=== PATIENT | female | born 1935 | race Caucasian/White ===

== ENCOUNTER 2017-12-17 20:33 | Emergency (ER) | payer MEDICARE, OTHER ==
[2017-12-17] MEDS ORDERED: Sodium Chloride 0.9% 10 ML Syringe FLUSH PRN (20:39)
[2017-12-17] MEDS ORDERED: Meperidine PF 100 MG/ML Syringe IVPUSH ONE (20:52)
[2017-12-17] MEDS ORDERED: Ondansetron 4 MG/2 ML SDV IVPUSH ONE (20:55)
--- NOTE | 2017-12-17 20:59 | EDM.PDOC ---
ED HPI GENERAL MEDICAL PROBLEM - General Chief Complaint: General Stated Complaint: liz,feels unwell Time Seen by Provider: 12/17/17 20:39 Source of Information: Reports: Patient, RN, RN Notes Reviewed History Limitations: Reports: No Limitations - History of Present Illness INITIAL COMMENTS - FREE TEXT/NARRATIVE: Patient presents to the ED at [facility] complaining of uncontrollable shaking, severe nausea, and "just not feeling well." Symptoms started about 15- 20 minutes prior to presentation. Patient denies any focal neurological deficits. No headache. No weakness. No visual changes. Patient denies any chest pain. Patient does not feel short of breath. She does not feel anxious. She is not sure why she can not control her hands from shaking. She feels very nauseated. She has not vomited but states "I almost did when I got up from the couch." No diarrhea. No abdominal pain. Is having normal BM's. No changes with any medications. She did eat supper this evening and states it did stay down. She is not sure if maybe she ate undercooked foods. No fevers. No chills. No issues with urination. She is taking her prescription medications as directed without any side effects. Patient denies any pain. Onset: Today, Sudden Onset Date: 12/17/17 Onset Time: 20:00 - Related Data Allergies Allergy/AdvReac Type Severity Reaction Status Date / Time brimonidine [From Combigan] Allergy Itching Verified 12/17/17 21:02 timolol Allergy Itching Verified 12/17/17 21:02 Home Meds: Home Meds Bimatoprost [LUMIGAN 0.01% Ophth Soln] 1 drop EYEBOTH BEDTIME 12/17/17 [History] Calcium Citrate/Vitamin D2 [Calcium with Vit D Tablet] 1 each PO BID 12/17/17 [ History] Hydrochlorothiazide [Hydrochlorothiazide] 1 tab PO DAILY 12/17/17 [History] Lisinopril [Lisinopril] 1 tab PO DAILY 12/17/17 [History] Multivitamin with Minerals [Multiple Vitamin] 1 each PO BID 12/17/17 [History] Niacin (Inositol Niacinate) [Niacin Flush Free 500 mg Cap] 500 mg PO DAILY 12/17 [History] [place]-3/DHA/Epa/Fish Oil [[place] 3 500 Softgel] 1 each PO BID 12/17/17 [History] Vit #49/Iron Fum/FA [Mini Tablet] 1 each PO DAILY 12/17/17 [ History] Thyroid,Pork [Nature-Throid] 1 tab PO DAILY 12/17/17 [History] Vitamin E 100 unit PO DAILY 12/17/17 [History] diphenhydrAMINE [Benadryl] 25 mg PO TID 12/17/17 [History] ED ROS GENERAL - Review of Systems Review Of Systems: See Below Constitutional: Denies: Fever, Chills, Weakness Respiratory: Denies: Shortness of Breath, Cough Cardiovascular: Denies: Chest Pain, Palpitations GI/Abdominal: Reports: Nausea. Denies: Abdominal Pain, Black Stool, Bloody Stool, Diarrhea, Vomiting Skin: Reports: No Symptoms Neurological: Reports: Dizziness, Other (feels shaky with her upper extremities) . Denies: Headache ED EXAM, GENERAL - Physical Exam Exam: See Below Exam Limited By: No Limitations General Appearance: Alert, No Apparent Distress Eye Exam: Bilateral Eye: Normal Inspection, PERRL Ears: Normal External Exam, Normal Canal, Normal TMs Ear Exam: Bilateral Ear: TM normal Nose: Normal Inspection Neck: Normal Inspection, Supple Respiratory/Chest: No Respiratory Distress, Lungs Clear, Normal Breath Sounds Cardiovascular: Normal Peripheral Pulses, Regular Rate, Rhythm Peripheral Pulses: 2+: Radial (L), Radial (R) GI/Abdominal: Soft, Non-Tender, Abnormal Bowel Sounds (Hypoactive) Extremities: Normal Inspection Neurological: Alert, Oriented, Other (shaking BUE as if she is cold) Skin Exam: Warm, Dry, Intact, Normal Color, No Rash EKG INTERPRETATION EKG Date: 12/17/17 Time: 21:10 Rhythm: NSR Rate (Beats/Min): 61 Hall: Normal P-Wave: Present QRS: Normal ST-T: Depressed QT: Normal GA/PQ Interval: 0.20 Comparison: NA - No Prior EKG EKG Interpretation Comments: 1. Sinus Rhythm 2. Moderate ST depression Course - Vital Signs Last Recorded V/S: Last Vital Signs Temp 35.8 C 12/17/17 20:39 Pulse 77 12/17/17 20:39 Resp 20 12/17/17 20:39 BP 160/94 H 12/17/17 20:39 Pulse Ox 100 12/17/17 20:39 - Orders/Labs/Meds Orders: Active Orders 24 hr Category Date Time Status EKG 12 Lead [EKG Documentation Completion] [RC] STAT Care 12/17/17 20:41 Active Chest 2V [CR] Stat Exams 12/17/17 20:39 Taken CULTURE BLOOD [BC] Stat Lab 12/17/17 20:58 Received CULTURE BLOOD [BC] Stat Lab 12/17/17 21:03 Received Potassium Chloride [Klor-Con M20] Med 12/17/17 21:41 Once 40 meq PO ONETIME ONE Sodium Chloride 0.9% [Saline Flush] Med 12/17/17 20:39 Active 10 ml FLUSH ASDIRECTED PRN Blood Culture x2 Reflex Set [OM.PC] Stat Oth 12/17/17 20:41 Ordered Peripheral IV Insertion Adult [OM.PC] Routine Oth 12/17/17 20:39 Ordered Medication Orders Sodium Chloride (Saline Flush) 10 ml FLUSH ASDIRECTED PRN PRN Reason: Keep Vein Open Labs: Laboratory Tests 12/17/17 12/17/17 12/17/17 Range/Units 20:58 20:58 20:58 WBC 4.2 (4.0-10.0) x10^3/uL RBC 3.99 L (4.00-5.50) x10^6/uL Hgb 12.7 (12.0-16.0) g/dL Hct 36.8 (33.0-47.0) % MCV 92.2 (78.0-93.0) fL MCH 31.8 (26.0-32.0) pg MCHC 34.5 (32.0-36.0) g/dL RDW Coeff of Josh 13.0 (10.0-15.0) % Plt Count 243 (130-400) x10^3/uL Neut % (Auto) 54.2 (50.0-80.0) % Lymph % (Auto) 31.2 (25.0-50.0) % [place] % (Auto) 10.6 (2.0-11.0) % Eos % (Auto) 3.3 (0.0-4.0) % Baso % (Auto) 0.7 (0.2-1.2) % Sodium 136 (136-145) mmol/L Potassium 3.3 L (3.5-5.1) mmol/L Chloride 100 (98-107) mmol/L Carbon Dioxide 27 (21-32) mmol/L BUN 9 (7-18) mg/dL Creatinine 0.8 (0.55-1.02) mg/dL Est Cr Clr Drug Dosing TNP Estimated GFR (MDRD) > 60 Glucose 101 (74-106) mg/dL Lactic Acid 1.0 (0.4-2.0) mmol/L Calcium 9.2 (8.5-10.1) mg/dL Phosphorus 4.0 (2.6-4.7) mg/dL Magnesium 2.0 (1.8-2.4) mg/dL Creatine Kinase 63 (26-192) U/L Troponin I < 0.017 (<=0.056) ng/mL C-Reactive Protein < 0.2 (<=0.9) mg/dL Urine Color (YELLOW) Urine Appearance (CLEAR) Urine pH (5.0-8.0) Ur Specific [place] Urine Protein (NEGATIVE) mg/dL Urine Glucose (UA) (NEGATIVE) mg/dL Urine Ketones (NEGATIVE) mg/dL Urine Occult Blood (NEGATIVE) Urine Nitrite (NEGATIVE) Urine Bilirubin (NEGATIVE) Urine Urobilinogen (0.2) EU/dL Ur Leukocyte Esterase (NEGATIVE) Urine RBC (NOT SEEN) /HPF Urine WBC (NOT SEEN) /HPF Ur Squamous Epith Cells (NEGATIVE) /HPF Urine Bacteria (NEGATIVE) /HPF Urine Mucus (NEGATIVE) /LPF 12/17/17 Range/Units 21:00 WBC (4.0-10.0) x10^3/uL RBC (4.00-5.50) x10^6/uL Hgb (12.0-16.0) g/dL Hct (33.0-47.0) % MCV (78.0-93.0) fL MCH (26.0-32.0) pg MCHC (32.0-36.0) g/dL RDW Coeff of Josh (10.0-15.0) % Plt Count (130-400) x10^3/uL Neut % (Auto) (50.0-80.0) % Lymph % (Auto) (25.0-50.0) % [place] % (Auto) (2.0-11.0) % Eos % (Auto) (0.0-4.0) % Baso % (Auto) (0.2-1.2) % Sodium (136-145) mmol/L Potassium (3.5-5.1) mmol/L Chloride (98-107) mmol/L Carbon Dioxide (21-32) mmol/L BUN (7-18) mg/dL Creatinine (0.55-1.02) mg/dL Est Cr Clr Drug Dosing Estimated GFR (MDRD) Glucose (74-106) mg/dL Lactic Acid (0.4-2.0) mmol/L Calcium (8.5-10.1) mg/dL Phosphorus (2.6-4.7) mg/dL Magnesium (1.8-2.4) mg/dL Creatine Kinase (26-192) U/L Troponin I (<=0.056) ng/mL C-Reactive Protein (<=0.9) mg/dL Urine Color Yellow (YELLOW) Urine Appearance Slightly cloudy H (CLEAR) Urine pH 7.0 (5.0-8.0) Ur Specific [place] 1.010 Urine Protein Negative (NEGATIVE) mg/dL Urine Glucose (UA) Negative (NEGATIVE) mg/dL Urine Ketones Negative (NEGATIVE) mg/dL Urine Occult Blood Small H (NEGATIVE) Urine Nitrite Negative (NEGATIVE) Urine Bilirubin Negative (NEGATIVE) Urine Urobilinogen 0.2 (0.2) EU/dL Ur Leukocyte Esterase Negative (NEGATIVE) Urine RBC 5-10 H (NOT SEEN) /HPF Urine WBC 0-5 (NOT SEEN) /HPF Ur Squamous Epith Cells Rare (NEGATIVE) /HPF Urine Bacteria Rare (NEGATIVE) /HPF Urine Mucus Rare H (NEGATIVE) /LPF Meds: Medications Generic Name Dose Route Start Last Admin Trade Name Freq PRN Reason Stop Dose Admin Sodium Chloride 10 ml 12/17/17 20:39 Saline Flush FLUSH ASDIRECTED PRN Keep Vein Open Discontinued Medications Generic Name Dose Route Start Last Admin Trade Name Freq PRN Reason Stop Dose Admin Meperidine HCl 12.5 mg 12/17/17 20:52 12/17/17 21:06 Demerol IVPUSH 12/17/17 20:53 12.5 mg ONETIME ONE Administration Ondansetron HCl 4 mg 12/17/17 20:55 12/17/17 21:06 Zofran IVPUSH 12/17/17 20:56 4 mg ONETIME ONE Administration - Radiology Interpretation Free Text/Narrative:: CXR: No consolidation - see scanned report in EMR - Re-Assessments/Exams Free Text/Narrative Re-Assessment/Exam: 12/17/17 21:22 Patient states her shaking spells have resolved after getting the Demerol. Her nausea has resolved as well after the Zofran. Patient is resting comfortably. Departure - Departure Time of Disposition: 21:45 Disposition: Home, Self-Care 01 Condition: Good Clinical Impression: Nausea, Shaking - Discharge Information Instructions: Nausea, Adult, Tremor Referrals: Evangelina Dunaway MD [Primary Care Provider] - Forms: ED Department Discharge Additional Instructions: 1. Stay well hydrated and rest 2. Continue with home medications the same, no changes at this time 3. If symptoms persist, recommend seeing Dr. Dunaway for a recheck as needed 4. Call us with any questions/concerns - Problem List Review Problem List Initiated/Reviewed/Updated: Yes - My Orders Last 24 Hours: My Active Orders 12/17/17 20:39 Chest 2V [CR] Stat Sodium Chloride 0.9% [Saline Flush] 10 ml FLUSH ASDIRECTED PRN Peripheral IV Insertion Adult [OM.PC] Routine 12/17/17 20:41 EKG 12 Lead [EKG Documentation Completion] [RC] STAT Blood Culture x2 Reflex Set [OM.PC] Stat 12/17/17 20:58 CULTURE BLOOD [BC] Stat 12/17/17 21:03 CULTURE BLOOD [BC] Stat 12/17/17 21:41 Potassium Chloride [Klor-Con M20] 40 meq PO ONETIME ONE - Assessment/Plan Last 24 Hours: My Active Orders 12/17/17 20:39 Chest 2V [CR] Stat Sodium Chloride 0.9% [Saline Flush] 10 ml FLUSH ASDIRECTED PRN Peripheral IV Insertion Adult [OM.PC] Routine 12/17/17 20:41 EKG 12 Lead [EKG Documentation Completion] [RC] STAT Blood Culture x2 Reflex Set [OM.PC] Stat 12/17/17 20:58 CULTURE BLOOD [BC] Stat 12/17/17 21:03 CULTURE BLOOD [BC] Stat 12/17/17 21:41 Potassium Chloride [Klor-Con M20] 40 meq PO ONETIME ONE Assessment:: Nausea Non-specific tremor of upper body Plan: Labs, xray, and EKG reviewed with patient. No definitive etiology found for her presenting symptoms. Patient is feeling much better since arrival. It is possible she has a viral etiology or a gastroenteritis. Discussed with the patient to watch her symptoms over the next few days. She needs to stay well hydrated. No changes with any home medications. Return to PCP if symptoms persist.
[2017-12-17 21:34] LABS: CHLORIDE,CL 100 mmol/L (98-107); SODIUM,NA 136 mmol/L (136-145)
[2017-12-17] MEDS ORDERED: Potassium Chloride 20 MEQ Tab.ER PO ONE (21:41)
== END 2017-12-17 22:00 | disposition home or self-care (01) ==
LOC: VM.ED 20:33
DX: R11.0 Nausea (principal); R25.1 Tremor, unspecified; Z79.899 Other long term (current) drug therapy; Z88.8 Allergy status to other drugs, medicaments and biological substances
CPT/HCPCS: 36415; 71046; 80048; 81001; 82550; 83605; 83735; 84100; 84484; 85025; 86140; 87040; 93005; 93010; 96374; 96375; 99283; 99284; A9270; J2175; J2405

== ENCOUNTER 2017-12-18 08:23 | Observation (INO) | payer MEDICARE, OTHER ==
[2017-12-18 09:28] LABS: CHLORIDE,CL 102 mmol/L (98-107); SODIUM,NA 136 mmol/L (136-145)
[2017-12-18] MEDS ORDERED: LORazepam 0.5 MG Tab PO PRN (10:35)
[2017-12-18] MEDS ORDERED: Aspirin 81 MG Tab.Chew PO ONE (10:35)
[2017-12-18] MEDS ORDERED: Enoxaparin 40 MG/0.4 ML Syringe SUBCUT SCH (12:00)
[2017-12-18] MEDS: Hydrochlorothiazide 12.5 MG Cap PO SCH (14:03)
[2017-12-18] MEDS: Lisinopril 20 MG Tab PO SCH (14:03)
--- NOTE | 2017-12-18 15:54 | EDM.PDOC ---
ED HPI GENERAL MEDICAL PROBLEM - General Chief Complaint: Gastrointestinal Problem Stated Complaint: chest heaviness, nausea Time Seen by Provider: 12/18/17 08:23 Source of Information: Reports: Patient History Limitations: Reports: No Limitations - History of Present Illness INITIAL COMMENTS - FREE TEXT/NARRATIVE: She presents to the ER with complaints of chest heaviness, nausea, and lightheadedness. States that she generally "doesn't feel well". Was in ER last night with similar symptoms; states that she went to stay with family for the night, went to sleep, and had no problems. She states that once she woke up, the symptoms redeveloped. Denies shortness of breath, arm, jaw, neck, or back pain. Onset: Gradual Duration: Constant Location: Reports: Chest Quality: Reports: Pressure Severity: Moderate - Related Data Allergies Allergy/AdvReac Type Severity Reaction Status Date / Time brimonidine [From Combigan] Allergy Itching Verified 12/18/17 08:33 timolol Allergy Itching Verified 12/18/17 08:33 Home Meds: Home Meds Bimatoprost [LUMIGAN 0.01% Ophth Soln] 1 drop EYEBOTH BEDTIME 12/17/17 [History] Calcium Citrate/Vitamin D2 [Calcium with Vit D Tablet] 1 each PO BID 12/17/17 [ History] Hydrochlorothiazide [Hydrochlorothiazide] 12.5 mg PO QAM 12/17/17 [History] Lisinopril [Lisinopril] 20 mg PO DAILY 12/17/17 [History] Multivitamin with Minerals [Multiple Vitamin] 1 each PO BID 12/17/17 [History] Niacin (Inositol Niacinate) [Niacin Flush Free 500 mg Cap] 500 mg PO DAILY 12/17 [History] [place]-3/DHA/Epa/Fish Oil [[place] 3 500 Softgel] 1 each PO BID 12/17/17 [History] Vit #49/Iron Fum/FA [Mini Tablet] 1 each PO DAILY 12/17/17 [ History] Thyroid,Pork [Nature-Throid] 65 mg PO DAILY 12/17/17 [History] Vitamin E 100 unit PO DAILY 12/17/17 [History] diphenhydrAMINE [Benadryl] 25 mg PO TID 12/17/17 [History] Past Medical History HEENT History: Reports: Glaucoma Cardiovascular History: Reports: High Cholesterol, Hypertension Gastrointestinal History: Reports: PUD Endocrine/Metabolic History: Reports: Hypothyroidism Social & Family History - Tobacco Use Smoking Status *Q: Never Smoker Second Hand Smoke Exposure: No - Caffeine Use Caffeine Use: Reports: Coffee - Alcohol Use Days Per Week of Alcohol Use: 7 Number of Drinks Per Day: 1 Total Drinks Per Week: 7 - Recreational Drug Use Recreational Drug Use: No ED ROS GENERAL - Review of Systems Review Of Systems: See Below Constitutional: Reports: No Symptoms HEENT: Reports: No Symptoms Respiratory: Reports: No Symptoms Cardiovascular: Reports: Chest Pain. Denies: Dyspnea on Exertion, Palpitations , PND Endocrine: Reports: No Symptoms GI/Abdominal: Reports: Nausea : Reports: No Symptoms Musculoskeletal: Reports: No Symptoms Skin: Reports: No Symptoms Neurological: Reports: No Symptoms Psychiatric: Reports: No Symptoms Hematologic/Lymphatic: Reports: No Symptoms Immunologic: Reports: No Symptoms ED EXAM, GENERAL - Physical Exam Exam: See Below Exam Limited By: No Limitations General Appearance: Alert, WD/WN, No Apparent Distress Ears: Normal External Exam, Normal Canal, Hearing Grossly Normal, Normal TMs Nose: Normal Inspection, Normal Mucosa, No Blood Throat/Mouth: Normal Inspection, Normal Lips, Normal Teeth, Normal Gums, Normal Oropharynx, Normal Voice, No Airway Compromise Head: Atraumatic, Normocephalic Neck: Normal Inspection, Supple, Non-Tender, Full Range of Motion Respiratory/Chest: No Respiratory Distress, Lungs Clear, Normal Breath Sounds, No Accessory Muscle Use, Chest Non-Tender Cardiovascular: Normal Peripheral Pulses, Regular Rate, Rhythm, No Edema, No Gallop, No JVD, No Murmur, No Rub GI/Abdominal: Normal Bowel Sounds, Soft, Non-Tender, No Organomegaly, No Distention, No Abnormal Bruit, No Mass (Female) Exam: Deferred Rectal (Female) Exam: Deferred Back Exam: Normal Inspection, Full Range of Motion, NT Extremities: Normal Inspection, Normal Range of Motion, Non-Tender, Normal Capillary Refill, No Pedal Edema Neurological: Alert, Oriented, CN II-XII Intact, Normal Cognition, Normal Gait, Normal Reflexes, No Motor/Sensory Deficits Psychiatric: Normal Affect, Normal Mood Skin Exam: Warm, Dry, Intact, Normal Color, No Rash Lymphatic: No Adenopathy EKG INTERPRETATION EKG Date: 12/18/17 Rhythm: NSR [place]: Normal P-Wave: Present QRS: Normal ST-T: Normal QT: Normal Course - Vital Signs Last Recorded V/S: Last Vital Signs Temp 37.2 C 12/18/17 14:00 Pulse 60 12/18/17 14:00 Resp 16 12/18/17 14:00 BP 147/73 H 12/18/17 14:00 Pulse Ox 97 12/18/17 14:00 - Orders/Labs/Meds Orders: Medication Orders Calcium Citrate (Calcium Citrate + D) 1 tab PO BID [facility] Diphenhydramine HCl (Benadryl) 25 mg PO TID [facility] Enoxaparin Sodium (Lovenox) 40 mg SUBCUT DAILY@1200 [facility] Last Admin: 12/18/17 11:13 Dose: 40 mg Fish Oil (Fish Oil) 1 gm PO BID [facility] Hydrochlorothiazide (Hydrochlorothiazide) 12.5 mg PO DAILY [facility] Last Admin: 12/18/17 14:03 Dose: 12.5 mg Lisinopril (Prinivil) 20 mg PO DAILY [facility] Last Admin: 12/18/17 14:03 Dose: 20 mg Lorazepam (Ativan) 0.5 mg PO Q6H PRN PRN Reason: Anxiety Last Admin: 12/18/17 16:21 Dose: 0.5 mg Multivitamins/Minerals (Thera M Plus) 1 tab PO BID [facility] Niacin (Niaspan) 500 mg PO DAILY [facility] Bimatoprost [Lumigan 0.01% Ophth Soln] ( Own Supply) 1 drop EYEBOTH BEDTIME [facility] Vit #49/Iron Fum/Fa [Mini Tablet] ( Own Supply) 1 each PO DAILY [facility] Thyroid,Pork [Nature -Throid] 65 Mg (Own Supply) 65 mg PO DAILY [facility] Vitamin E [Vitamin E ] 100 Unit (Own Supply) 0 unit PO DAILY [facility] Labs: Laboratory Tests 12/18/17 12/18/17 12/18/17 Range/Units 08:47 08:47 08:47 WBC 3.2 L (4.0-10.0) x10^3/uL RBC 3.83 L (4.00-5.50) x10^6/uL Hgb 12.3 (12.0-16.0) g/dL Hct 35.8 (33.0-47.0) % MCV 93.5 H (78.0-93.0) fL MCH 32.1 H (26.0-32.0) pg MCHC 34.4 (32.0-36.0) g/dL RDW Coeff of Josh 13.1 (10.0-15.0) % Plt Count 228 (130-400) x10^3/uL Neut % (Auto) 64.5 (50.0-80.0) % Lymph % (Auto) 21.9 L (25.0-50.0) % [place] % (Auto) 9.3 (2.0-11.0) % Eos % (Auto) 3.4 (0.0-4.0) % Baso % (Auto) 0.9 (0.2-1.2) % PT 10.1 (9.8-11.8) SEC INR 0.9 L (2.0-3.5) Sodium 136 (136-145) mmol/L Potassium 3.8 (3.5-5.1) mmol/L Chloride 102 (98-107) mmol/L Carbon Dioxide 26 (21-32) mmol/L BUN 9 (7-18) mg/dL Creatinine 0.9 (0.55-1.02) mg/dL Est Cr Clr Drug Dosing TNP Estimated GFR (MDRD) 60 Glucose 91 (74-106) mg/dL Calcium 9.3 (8.5-10.1) mg/dL Corrected Calcium 9.46 (8.5-10.1) mg/dL Total Bilirubin 1.3 H (0.2-1.0) mg/dL AST 19 (15-37) U/L ALT 20 (14-59) U/L Alkaline Phosphatase 81 (46-116) U/L Troponin I < 0.017 (<=0.056) ng/mL C-Reactive Protein < 0.2 (<=0.9) mg/dL Total Protein 6.7 (6.4-8.2) g/dL Albumin 3.8 (3.4-5.0) g/dL Globulin 2.9 Albumin/Globulin Ratio 1.31 TSH, Ultra Sensitive 2.265 (0.358-3.74) uIU/mL Meds: Medications Generic Name Dose Route Start Last Admin Trade Name Freq PRN Reason Stop Dose Admin Calcium Citrate 1 tab 03/08/18 20:00 Calcium Citrate + D PO BID [facility] Diphenhydramine HCl 25 mg 12/18/17 20:00 Benadryl PO TID [facility] Enoxaparin Sodium 40 mg 12/18/17 12:00 12/18/17 11:13 Lovenox SUBCUT 40 mg DAILY@1200 [facility] Administration Fish Oil 1 gm 12/18/17 20:00 Fish Oil PO BID [facility] Hydrochlorothiazide 12.5 mg 12/18/17 13:18 12/18/17 14:03 Hydrochlorothiazide PO 12.5 mg DAILY [facility] Administration Lisinopril 20 mg 12/18/17 13:30 12/18/17 14:03 Prinivil PO 20 mg DAILY [facility] Administration Lorazepam 0.5 mg 12/18/17 10:35 12/18/17 16:21 Ativan PO 0.5 mg Q6H PRN Administration Anxiety Multivitamins/Minerals 1 tab 12/18/17 20:00 Thera M Plus PO BID [facility] Niacin 500 mg 12/19/17 08:00 Niaspan PO DAILY [facility] Bimatoprost [Lumigan 1 drop 12/18/17 20:00 0.01% Ophth Soln] ( EYEBOTH Own Supply) BEDTIME [facility] Vit #49/ 1 each 12/19/17 08:00 Iron Fum/Fa [Mini PO Tablet] ( DAILY [facility] Own Supply) Thyroid,Pork [Nature 65 mg 12/19/17 08:00 -Throid] 65 Mg (Own PO Supply) DAILY [facility] Vitamin E [Vitamin E 0 unit 12/19/17 08:00 ] 100 Unit (Own PO Supply) DAILY [facility] Discontinued Medications Generic Name Dose Route Start Last Admin Trade Name Freq PRN Reason Stop Dose Admin Aspirin 324 mg 12/18/17 10:35 12/18/17 11:13 Aspirin PO 12/18/17 10:36 324 mg ONETIME ONE Administration Departure - Departure Time of Disposition: 10:25 Disposition: Refer to Observation Clinical Impression: Chest pressure - Discharge Information
[2017-12-18] MEDS: diphenhydrAMINE 25 MG Cap PO SCH (20:17)
[2017-12-18] MEDS: Fish Oil/Omega-3 Fatty Acids 1 Gm Cap PO SCH (20:18)
[2017-12-18] MEDS: Calcium Citrate/Vitamin D3 315 MG-250 Unit Tab PO SCH (20:18)
[2017-12-18] MEDS: Multivitamins with Iron/Calcium/Folic Acid/Minerals Tab PO SCH (20:18)
[2017-12-19] MEDS: Lisinopril 20 MG Tab PO SCH (07:26)
[2017-12-19] MEDS: Hydrochlorothiazide 12.5 MG Cap PO SCH (07:26)
[2017-12-19] MEDS: Fish Oil/Omega-3 Fatty Acids 1 Gm Cap PO SCH (07:26)
[2017-12-19] MEDS: Calcium Citrate/Vitamin D3 315 MG-250 Unit Tab PO SCH (07:26)
[2017-12-19] MEDS: diphenhydrAMINE 25 MG Cap PO SCH (07:26)
[2017-12-19] MEDS: Multivitamins with Iron/Calcium/Folic Acid/Minerals Tab PO SCH (07:26)
[2017-12-19] MEDS ORDERED: [UNRECOGNIZED DRUG - OTHER] PO SCH (08:00)
[2017-12-19] MEDS ORDERED: IRON FUM PO SCH (08:00)
[2017-12-19] MEDS ORDERED: THYROID PORK 65 MG PO SCH (08:00)
[2017-12-19] MEDS ORDERED: PRENATAL VIT PO SCH (08:00)
[2017-12-19] MEDS ORDERED: Niacin 500 MG Tab.ER PO SCH (08:00)
[2017-12-19] MEDS ORDERED: VITAMIN E 100 UNIT PO SCH (08:00)
== END 2017-12-19 09:35 | disposition home or self-care (01) ==
LOC: VM.ED 08:23 → VM.MS 10:15
PROVIDERS: ADMIT Physician Assistant; ATTEND Physician Assistant
DX: R07.89 Other chest pain (principal); H40.9 Unspecified glaucoma; I10 Essential (primary) hypertension; E78.00 Pure hypercholesterolemia, unspecified; E03.9 Hypothyroidism, unspecified; Z88.8 Allergy status to other drugs, medicaments and biological substances; Z79.899 Other long term (current) drug therapy
CPT/HCPCS: 36415; 71046; 80053; 84443; 84484; 85025; 85027; 85610; 86140; 93005; 96372; 99284; A9270; G0378; J1650

== ENCOUNTER 2017-12-29 21:54 | Emergency (ER) | payer MEDICARE, OTHER ==
--- NOTE | 2017-12-29 22:20 | EDM.PDOC ---
ED HPI GENERAL MEDICAL PROBLEM - General Chief Complaint: General Stated Complaint: dizziness, nausea Time Seen by Provider: 12/29/17 22:12 Source of Information: Reports: Patient, Old Records, RN, RN Notes Reviewed History Limitations: Reports: No Limitations - History of Present Illness INITIAL COMMENTS - FREE TEXT/NARRATIVE: Patient presents to the ED at [facility] complaining of unrelenting dizziness and significant nausea. Patient states she was seen in the clinic today for the same symptoms. She had a CT of her head today which was negative. Blood work was not overly remarkable outside of a low sodium. PCP recommended to patient to try Meclizine every 4 hours, increase salt intake. Was also ok for patient to take her Xanax as needed. Patient admits since leaving the clinic today she has not followed her D/C instructions that her PCP gave her. She states her symptoms have progressively gotten worse through the day. Onset: Unknown/Unsure - Related Data Allergies Allergy/AdvReac Type Severity Reaction Status Date / Time brimonidine [From Combigan] Allergy Itching Verified 12/29/17 22:12 timolol Allergy Itching Verified 12/29/17 22:12 Home Meds: Home Meds Bimatoprost [LUMIGAN 0.01% Ophth Soln] 1 drop EYEBOTH BEDTIME 12/17/17 [History] Calcium Citrate/Vitamin D2 [Calcium with Vit D Tablet] 1 each PO BID 12/17/17 [ History] Hydrochlorothiazide 12.5 mg PO QAM 12/17/17 [History] Lisinopril 20 mg PO DAILY 12/17/17 [History] Multivitamin with Minerals [Multiple Vitamin] 1 each PO BID 12/17/17 [History] Niacin (Inositol Niacinate) [Niacin Flush Free 500 mg Cap] 500 mg PO DAILY 12/17 [History] [place]-3/DHA/Epa/Fish Oil [[place] 3 500 Softgel] 1 each PO BID 12/17/17 [History] Vit #49/Iron Fum/FA [Mini Tablet] 1 each PO DAILY 12/17/17 [ History] Thyroid,Pork [Nature-Throid] 65 mg PO DAILY 12/17/17 [History] Vitamin E 100 unit PO DAILY 12/17/17 [History] diphenhydrAMINE [Benadryl] 25 mg PO TID 12/17/17 [History] LORazepam [Ativan] 0.5 mg PO Q6H PRN 5 Days #20 tablet 12/19/17 [Rx] Meclizine [Antivert] 1 tab PO Q4H PRN 12/29/17 [History] Past Medical History HEENT History: Reports: Glaucoma Cardiovascular History: Reports: High Cholesterol, Hypertension Gastrointestinal History: Reports: PUD Endocrine/Metabolic History: Reports: Hypothyroidism Social & Family History - Tobacco Use Smoking Status *Q: Never Smoker Second Hand Smoke Exposure: No - Caffeine Use Caffeine Use: Reports: Coffee - Alcohol Use Days Per Week of Alcohol Use: 7 Number of Drinks Per Day: 1 Total Drinks Per Week: 7 - Recreational Drug Use Recreational Drug Use: No ED ROS GENERAL - Review of Systems Review Of Systems: See Below Constitutional: Denies: Fever, Chills, Weakness HEENT: Reports: Vertigo. Denies: Vision Change Respiratory: Denies: Shortness of Breath, Cough Cardiovascular: Denies: Chest Pain, Palpitations Skin: Reports: No Symptoms Neurological: Reports: Dizziness. Denies: Headache, Numbness, Paresthesia, Syncope, Tingling ED EXAM, GENERAL - Physical Exam Exam: See Below Exam Limited By: No Limitations General Appearance: Alert, No Apparent Distress Eye Exam: Bilateral Eye: EOMI, Normal Inspection, PERRL Ears: Normal External Exam, Normal Canal, Normal TMs Ear Exam: Bilateral Ear: TM normal Head: Atraumatic, Normocephalic Neck: Supple Respiratory/Chest: No Respiratory Distress, Lungs Clear, Normal Breath Sounds Cardiovascular: Normal Peripheral Pulses, Regular Rate, Rhythm Peripheral Pulses: 2+: Radial (L), Radial (R) GI/Abdominal: Normal Bowel Sounds, Soft, Non-Tender Neurological: Alert, Oriented, Normal Cognition Skin Exam: Warm, Dry, Intact, Normal Color Course - Vital Signs Last Recorded V/S: Last Vital Signs Temp 36.4 C 12/29/17 21:55 Pulse 65 12/29/17 21:55 Resp 20 12/29/17 21:55 BP 168/78 H 12/29/17 21:55 Pulse Ox 100 12/29/17 21:55 - Orders/Labs/Meds Orders: Active Orders 24 hr Category Date Time Status Sodium Chloride 0.9% [Saline Flush] Med 12/29/17 22:21 Active 10 ml FLUSH ASDIRECTED PRN Peripheral IV Insertion Adult [OM.PC] Routine Oth 12/29/17 22:21 Ordered Medication Orders Sodium Chloride (Saline Flush) 10 ml FLUSH ASDIRECTED PRN PRN Reason: Keep Vein Open Meds: Medications Generic Name Dose Route Start Last Admin Trade Name Freq PRN Reason Stop Dose Admin Sodium Chloride 10 ml 12/29/17 22:21 Saline Flush FLUSH ASDIRECTED PRN Keep Vein Open Discontinued Medications Generic Name Dose Route Start Last Admin Trade Name Freq PRN Reason Stop Dose Admin Lactated Ringer's 1,000 mls @ 999 mls/hr 12/29/17 22:22 12/29/17 22:25 Ringers, Lactated IV 12/29/17 23:22 999 mls/hr ONETIME ONE Administration Meclizine HCl 25 mg 12/29/17 22:22 12/29/17 22:36 Antivert PO 12/29/17 22:23 25 mg ONETIME ONE Administration Ondansetron HCl 4 mg 12/29/17 22:22 12/29/17 22:33 Zofran IVPUSH 12/29/17 22:23 4 mg ONETIME ONE Administration Ondansetron HCl 1 packet 12/29/17 22:26 12/29/17 22:36 Take Home: Ondansetron Odt 4 Mg, 2 Tab Pack PO 12/29/17 22:27 1 packet ONETIME ONE Administration Departure - Departure Time of Disposition: 23:28 Disposition: Home, Self-Care 01 Condition: Good Clinical Impression: Dizziness BPPV (benign paroxysmal positional vertigo) Qualifiers: Laterality: unspecified laterality Qualified Code(s): H81.10 - Benign paroxysmal vertigo, unspecified ear - Discharge Information Instructions: Dizziness Referrals: Evangelina Dunaway MD [Primary Care Provider] - Forms: ED Department Discharge Additional Instructions: 1. Stay well hydrated and rest 2. Increase your salt intake 3. Use Meclizine as directed 4. See Dr. Dunaway in 3 weeks as scheduled 5. Use your anxiety medication as prescribed 6. Call us with any questions/concerns - Problem List Review Problem List Initiated/Reviewed/Updated: Yes - My Orders Last 24 Hours: My Active Orders 12/29/17 22:21 Sodium Chloride 0.9% [Saline Flush] 10 ml FLUSH ASDIRECTED PRN Peripheral IV Insertion Adult [OM.PC] Routine - Assessment/Plan Last 24 Hours: My Active Orders 12/29/17 22:21 Sodium Chloride 0.9% [Saline Flush] 10 ml FLUSH ASDIRECTED PRN Peripheral IV Insertion Adult [OM.PC] Routine Assessment:: BPPV Plan: Will give patient IVF for low sodium and IV Zofran for nausea. Give PO Meclizine. No other testing advised as patient already had a complete workup earlier today. Take home Zofran for nausea as needed. F/U with PCP as symptoms warrant. Patient states feeling much better at discharge.
[2017-12-29] MEDS ORDERED: Sodium Chloride 0.9% 10 ML Syringe FLUSH PRN (22:21)
[2017-12-29] MEDS ORDERED: Lactated Ringers 1,000 ML IV ONE (22:22)
[2017-12-29] MEDS ORDERED: Ondansetron 4 MG/2 ML SDV IVPUSH ONE (22:22)
[2017-12-29] MEDS ORDERED: Meclizine 25 MG Tab PO ONE (22:22)
[2017-12-29] MEDS ORDERED: Take Home: Ondansetron 4 MG Tab.DIS, 2 Tab Pack PO ONE (22:26)
== END 2017-12-29 23:40 | disposition home or self-care (01) ==
LOC: VM.ED 21:54
DX: H81.10 Benign paroxysmal vertigo, unspecified ear (principal); E78.00 Pure hypercholesterolemia, unspecified; I10 Essential (primary) hypertension; E03.9 Hypothyroidism, unspecified; Z88.8 Allergy status to other drugs, medicaments and biological substances; Z79.899 Other long term (current) drug therapy
CPT/HCPCS: 96361; 96374; 99283; 99283-GF; A9270-GY; J2405; J7120

== ENCOUNTER 2018-01-15 20:54 | Emergency (ER) | payer MEDICARE, OTHER ==
[2018-01-15] MEDS ORDERED: Sodium Chloride 0.9% 1,000 ML IV SCH (20:55)
[2018-01-15] MEDS ORDERED: Sodium Chloride 0.9% 10 ML Syringe FLUSH PRN (21:01)
--- NOTE | 2018-01-15 21:05 | EDM.PDOC ---
ED HPI GENERAL MEDICAL PROBLEM - General Chief Complaint: Syncope Stated Complaint: Dizziness; Syncope Time Seen by Provider: 01/15/18 20:55 Source of Information: Reports: Patient, EMS Notes Reviewed, Family, RN, RN Notes Reviewed History Limitations: Reports: No Limitations - History of Present Illness INITIAL COMMENTS - FREE TEXT/NARRATIVE: Patient is brought to the ED at [facility] via EMS for syncope and dizziness. According family, they found the patient on the kitchen floor minimally responsive, so EMS was called. Upon their arrival, the patient seemed slow to respond and complained of nausea. EKG on scene was unremarkable. Patient did not have any chest pain or SOB. Patient was given Zofran in route. Upon arrival to ED, patient is alert and appropriate. She remembers "passing out " due to feeling dizzy. She states she was in the kitchen making coffee when she felt faint and slump to the floor. She did not hit her head. No abdominal pain. Patient denies any numbness, tingling, or paresthesias to any extremity. 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 - Related Data Allergies Allergy/AdvReac Type Severity Reaction Status Date / Time brimonidine [From Combigan] Allergy Itching Verified 12/29/17 22:12 timolol Allergy Itching Verified 12/29/17 22:12 Home Meds: Home Meds Bimatoprost [LUMIGAN 0.01% Ophth Soln] 1 drop EYEBOTH BEDTIME 12/17/17 [History] Calcium Citrate/Vitamin D2 [Calcium with Vit D Tablet] 1 each PO BID 12/17/17 [ History] Hydrochlorothiazide 12.5 mg PO QAM 12/17/17 [History] Lisinopril 20 mg PO DAILY 12/17/17 [History] Multivitamin with Minerals [Multiple Vitamin] 1 each PO BID 12/17/17 [History] Niacin (Inositol Niacinate) [Niacin Flush Free 500 mg Cap] 500 mg PO DAILY 12/17 [History] [place]-3/DHA/Epa/Fish Oil [[place] 3 500 Softgel] 1 each PO BID 12/17/17 [History] Vit #49/Iron Fum/FA [Mini Tablet] 1 each PO DAILY 12/17/17 [ History] Thyroid,Pork [Nature-Throid] 65 mg PO DAILY 12/17/17 [History] Vitamin E 100 unit PO DAILY 12/17/17 [History] diphenhydrAMINE [Benadryl] 25 mg PO TID 12/17/17 [History] LORazepam [Ativan] 0.5 mg PO Q6H PRN 5 Days #20 tablet 12/19/17 [Rx] Meclizine [Antivert] 1 tab PO Q4H PRN 12/29/17 [History] Past Medical History HEENT History: Reports: Glaucoma Cardiovascular History: Reports: High Cholesterol, Hypertension Gastrointestinal History: Reports: PUD Neurological History: Reports: Vertigo Endocrine/Metabolic History: Reports: Hypothyroidism Social & Family History - Tobacco Use Smoking Status *Q: Never Smoker Second Hand Smoke Exposure: No - Caffeine Use Caffeine Use: Reports: Coffee - Alcohol Use Days Per Week of Alcohol Use: 7 Number of Drinks Per Day: 1 Total Drinks Per Week: 7 - Recreational Drug Use Recreational Drug Use: No ED ROS GENERAL - Review of Systems Review Of Systems: See Below Constitutional: Reports: Weakness. Denies: Fever, Chills HEENT: Reports: Vertigo Respiratory: Denies: Shortness of Breath, Cough Cardiovascular: Reports: Lightheadedness, Syncope. Denies: Chest Pain, Palpitations GI/Abdominal: Denies: Abdominal Pain, Nausea, Vomiting Skin: Reports: No Symptoms Neurological: Reports: Dizziness, Syncope. Denies: Headache, Numbness, Paresthesia, Tingling - Physical Exam Exam: See Below Exam Limited By: No Limitations General Appearance: Alert, No Apparent Distress Eye Exam: Bilateral Eye: Normal Inspection, PERRL Ears: Normal External Exam, Normal Canal, Hearing Grossly Normal Head Exam: Atraumatic, Normocephalic Neck: Supple Respiratory/Chest: No Respiratory Distress, Lungs Clear, Normal Breath Sounds Cardiovascular: Normal Peripheral Pulses, Regular Rate, Rhythm GI/Abdominal: Normal Bowel Sounds, Soft, Non-Tender Neuro Exam (Abbreviated): Alert, Oriented Back Exam: Normal Inspection Extremities: Normal Inspection Skin Exam: Warm, Dry, Intact, Normal Color EKG INTERPRETATION EKG Date: 01/15/18 Time: 21:36 Rhythm: NSR Rate (Beats/Min): 62 [place]: Normal P-Wave: Enlarged QRS: Normal ST-T: Normal QT: Normal NC/PQ Interval: 0.221 Comparison: No Change EKG Interpretation Comments: 1. Sinus Rhythm with a 1st degree AVB 2. Nonspecific T-wave abnormality Course - Orders/Labs/Meds Orders: Active Orders 24 hr Category Date Time Status EKG 12 Lead [EKG Documentation Completion] [RC] STAT Care 01/15/18 21:03 Active Orthostatic Vital Signs [RC] ONETIME Care 01/15/18 21:00 Active Sodium Chloride 0.9% [Saline Flush] Med 01/15/18 21:01 Active 10 ml FLUSH ASDIRECTED PRN Peripheral IV Insertion Adult [OM.PC] Routine Oth 01/15/18 21:01 Ordered Medication Orders Sodium Chloride (Saline Flush) 10 ml FLUSH ASDIRECTED PRN PRN Reason: Keep Vein Open Meds: Medications Generic Name Dose Route Start Last Admin Trade Name Freq PRN Reason Stop Dose Admin Sodium Chloride 10 ml 01/15/18 21:01 Saline Flush FLUSH ASDIRECTED PRN Keep Vein Open Departure - Departure Time of Disposition: 21:50 Disposition: DC/Tfer to [facility] 02 Condition: Good Clinical Impression: Syncope and collapse, Dizziness Fall Qualifiers: Encounter type: initial encounter Qualified Code(s): W19.XXXA - Unspecified fall, initial encounter - Discharge Information Forms: Interfacility Transfer EMTALA - Problem List Review Problem List Initiated/Reviewed/Updated: Yes - My Orders Last 24 Hours: My Active Orders 01/15/18 21:00 Orthostatic Vital Signs [RC] ONETIME 01/15/18 21:01 Sodium Chloride 0.9% [Saline Flush] 10 ml FLUSH ASDIRECTED PRN Peripheral IV Insertion Adult [OM.PC] Routine 01/15/18 21:03 EKG 12 Lead [EKG Documentation Completion] [RC] STAT - Assessment/Plan Last 24 Hours: My Active Orders 01/15/18 21:00 Orthostatic Vital Signs [RC] ONETIME 01/15/18 21:01 Sodium Chloride 0.9% [Saline Flush] 10 ml FLUSH ASDIRECTED PRN Peripheral IV Insertion Adult [OM.PC] Routine 01/15/18 21:03 EKG 12 Lead [EKG Documentation Completion] [RC] STAT Assessment:: Syncope Dizziness Falls, frequent Plan: Labs reviewed from [place] drawn today. Case discussed with Dr. Jorgensen, [facility]. Given the patient's history of dizziness and syncope today, additional testing and evaluation are warrant at a tertiary facility. Dr. Jorgensen accepted patient in transfer. No additional work up required prior to transfer. Patient will be sent via [facility] ground to [facility].
== END 2018-01-15 23:20 | disposition short-term general hospital (02) ==
LOC: VM.ED 20:54
DX: R55 Syncope and collapse (principal); E78.00 Pure hypercholesterolemia, unspecified; I10 Essential (primary) hypertension; E03.9 Hypothyroidism, unspecified; Z88.8 Allergy status to other drugs, medicaments and biological substances; Z79.899 Other long term (current) drug therapy; W19.XXXA Unspecified fall, initial encounter
CPT/HCPCS: 93005; 96360; 99285; J7030

== ENCOUNTER 2018-01-19 11:09 | Emergency (ER) | payer MEDICARE, OTHER ==
[2018-01-19] MEDS ORDERED: Meclizine 25 MG Tab PO ONE (11:34)
[2018-01-19] MEDS ORDERED: Ondansetron 4 MG Tab.DIS PO ONE (11:34)
[2018-01-19] MEDS ORDERED: Sodium Chloride 0.9% 10 ML Syringe FLUSH PRN (11:51)
[2018-01-19] MEDS ORDERED: Sodium Chloride 0.9% 1,000 ML IV ONE (11:51)
--- NOTE | 2018-01-19 12:47 | EDM.PDOC ---
ED HPI GENERAL MEDICAL PROBLEM - General Chief Complaint: General Stated Complaint: NOT FEELING GOOD Time Seen by Provider: 01/19/18 11:34 Source of Information: Reports: Patient, Family History Limitations: Reports: No Limitations - History of Present Illness INITIAL COMMENTS - FREE TEXT/NARRATIVE: Patient arrives with complaints of dizziness. This is not a new condition for her. She has been struggling off and on with this for approximately 1 month. She was last seen in this emergency room on Friday after an episode of syncope in which she fell. At that time she was given head CT which was normal and transferred to [place] for additional imaging including an MRI. She was discharged from [facility] Friday after the MRI which showed no acute processes. She is a patient of Dr. uDnaway at the [facility]. She is having similar complaints to all of her other episodes known new symptoms have been exhibited. She had been prescribed meclizine for her dizziness however she has not been taking this. She states that this morning she became dizzy and before that had been feeling fine. She did eat breakfast and has been drinking fluids. Upon further investigation she tells me that she did only time she drinks moderate is when she is taking her medications. She does also state that she drinks coffee. She currently denies any headache, shortness of breath, chest pain, abdominal pain, numbness, tingling, or pain to her extremities. She also denies blood in her urine or stool, denies a current loss of consciousness, and is having regular bowel and bladder movements. She has not been nauseated or throwing up today. Currently there have been no explanations for the last month of her dizziness. She has had complete cardiac workups which have not indicated a cardiac cause. Onset: Today - Related Data Allergies Allergy/AdvReac Type Severity Reaction Status Date / Time brimonidine [From Combigan] Allergy Itching Verified 01/19/18 11:42 timolol Allergy Itching Verified 01/19/18 11:42 Home Meds: Home Meds Bimatoprost [LUMIGAN 0.01% Ophth Soln] 1 drop EYEBOTH BEDTIME 12/17/17 [History] Calcium Citrate/Vitamin D2 [Calcium with Vit D Tablet] 1 each PO BID 12/17/17 [ History] Hydrochlorothiazide 12.5 mg PO QAM 12/17/17 [History] Lisinopril 20 mg PO DAILY 12/17/17 [History] Multivitamin with Minerals [Multiple Vitamin] 1 each PO BID 12/17/17 [History] Niacin (Inositol Niacinate) [Niacin Flush Free 500 mg Cap] 500 mg PO DAILY 12/17 [History] [place]-3/DHA/Epa/Fish Oil [[place] 3 500 Softgel] 1 each PO BID 12/17/17 [History] Vit #49/Iron Fum/FA [Mini Tablet] 1 each PO DAILY 12/17/17 [ History] Thyroid,Pork [Nature-Throid] 65 mg PO DAILY 12/17/17 [History] Vitamin E 100 unit PO DAILY 12/17/17 [History] diphenhydrAMINE [Benadryl] 25 mg PO TID 12/17/17 [History] Meclizine [Antivert] 1 tab PO Q4H PRN 12/29/17 [History] Past Medical History HEENT History: Reports: Glaucoma Cardiovascular History: Reports: High Cholesterol, Hypertension Gastrointestinal History: Reports: PUD Neurological History: Reports: Vertigo Endocrine/Metabolic History: Reports: Hypothyroidism Social & Family History - Tobacco Use Smoking Status *Q: Never Smoker Second Hand Smoke Exposure: No - Caffeine Use Caffeine Use: Reports: Coffee - Alcohol Use Days Per Week of Alcohol Use: 7 Number of Drinks Per Day: 1 Total Drinks Per Week: 7 - Recreational Drug Use Recreational Drug Use: No ED ROS GENERAL - Review of Systems Review Of Systems: See Below Constitutional: Reports: No Symptoms HEENT: Reports: No Symptoms Respiratory: Reports: No Symptoms Cardiovascular: Reports: No Symptoms Endocrine: Reports: No Symptoms GI/Abdominal: Reports: No Symptoms : Reports: No Symptoms Musculoskeletal: Reports: No Symptoms Skin: Reports: No Symptoms Neurological: Reports: Dizziness Psychiatric: Reports: No Symptoms Hematologic/Lymphatic: Reports: No Symptoms Immunologic: Reports: No Symptoms ED EXAM, GENERAL - Physical Exam Exam: See Below Exam Limited By: No Limitations General Appearance: Alert, WD/WN, No Apparent Distress Eye Exam: Bilateral Eye: EOMI, Normal Inspection, PERRL Ears: Normal TMs Nose: Normal Inspection, Normal Mucosa, No Blood Throat/Mouth: Normal Inspection, Normal Lips, Normal Teeth, Normal Gums, Normal Oropharynx, Normal Voice, No Airway Compromise Head: Atraumatic, Normocephalic Neck: Normal Inspection, Supple, Non-Tender, Full Range of Motion Respiratory/Chest: No Respiratory Distress, Lungs Clear, Normal Breath Sounds, No Accessory Muscle Use, Chest Non-Tender Cardiovascular: Normal Peripheral Pulses, Regular Rate, Rhythm, No Edema, No Gallop, No JVD, No Murmur, No Rub GI/Abdominal: Normal Bowel Sounds, Soft, Non-Tender, No Organomegaly, No Distention, No Abnormal Bruit, No Mass (Female) Exam: Deferred Rectal (Female) Exam: Deferred Back Exam: Normal Inspection, Full Range of Motion, NT Extremities: Normal Inspection, Normal Range of Motion, Non-Tender, Normal Capillary Refill, No Pedal Edema Neurological: Alert, Oriented, CN II-XII Intact, Normal Cognition, Normal Gait, Normal Reflexes, No Motor/Sensory Deficits Psychiatric: Normal Affect, Normal Mood Skin Exam: Warm, Dry, Intact, Normal Color, No Rash Lymphatic: No Adenopathy Course - Vital Signs Last Recorded V/S: Last Vital Signs Temp 36.2 C 01/19/18 11:25 Pulse 76 01/19/18 11:25 Resp 16 01/19/18 11:25 BP 145/71 H 01/19/18 11:25 Pulse Ox 97 01/19/18 11:25 - Orders/Labs/Meds Orders: Active Orders 24 hr Category Date Time Status Saline Lock Insert [OM.PC] Routine Oth 01/19/18 11:51 Ordered Meds: Medications Discontinued Medications Generic Name Dose Route Start Last Admin Trade Name Freq PRN Reason Stop Dose Admin Sodium Chloride 1,000 mls @ 999 mls/hr 01/19/18 11:51 01/19/18 12:00 Normal Saline IV 01/19/18 12:51 999 mls/hr ONETIME ONE Administration Meclizine HCl 25 mg 01/19/18 11:34 01/19/18 11:39 Antivert PO 01/19/18 11:35 25 mg ONETIME ONE Administration Ondansetron HCl 4 mg 01/19/18 11:34 01/19/18 11:39 Zofran Odt PO 01/19/18 11:35 4 mg ONETIME ONE Administration Sodium Chloride 10 ml 01/19/18 11:51 Saline Flush FLUSH ASDIRECTED PRN Keep Vein Open Departure - Departure Time of Disposition: 13:10 Disposition: Home, Self-Care 01 Condition: Good Clinical Impression: Dizziness - Discharge Information Instructions: Near-Syncope, [id number], Dizziness, [id number] Referrals: Evangelina Dunaway MD [Primary Care Provider] - Forms: ED Department Discharge Additional Instructions: Continue to follow with your primary to determine the cause of your vertigo and dizziness You should also follow up with neurology Stay hydrated. Coffee will dehydrate you. You need to have more water than just at med administration times. Please contact us if you have any additional questions or concerns. - Problem List & Annotations (1) Dizziness SNOMED Code(s): 361755613, [id number] Code(s): R42 - DIZZINESS AND GIDDINESS Status: Acute Priority: Medium - Problem List Review Problem List Initiated/Reviewed/Updated: Yes - My Orders Last 24 Hours: My Active Orders 01/19/18 11:51 Saline Lock Insert [OM.PC] Routine - Assessment/Plan Last 24 Hours: My Active Orders 01/19/18 11:51 Saline Lock Insert [OM.PC] Routine Assessment:: vertigo Plan: Continue to follow with your primary to determine the cause of your vertigo and dizziness You should also follow up with neurology Stay hydrated. Coffee will dehydrate you. You need to have more water than just at med administration times. Please contact us if you have any additional questions or concerns.
== END 2018-01-19 13:10 | disposition home or self-care (01) ==
LOC: VM.ED 11:09
DX: R42 Dizziness and giddiness (principal); I10 Essential (primary) hypertension; E78.00 Pure hypercholesterolemia, unspecified; E03.9 Hypothyroidism, unspecified; Z88.8 Allergy status to other drugs, medicaments and biological substances
CPT/HCPCS: 96360; 99284; A9270; J7030; 99283-GF

== ENCOUNTER 2018-01-20 09:43 | Emergency (ER) | payer MEDICARE, OTHER ==
[2018-01-20] MEDS ORDERED: Meclizine 25 MG Tab PO ONE (11:17)
[2018-01-20] MEDS ORDERED: dimenhyDRINATE 50 MG Tab PO ONE (11:17)
[2018-01-20] MEDS ORDERED: Iopamidol 612 MG/ML 100 ML Bottle IVPUSH ONE (12:10)
--- NOTE | 2018-01-20 18:03 | EDM.PDOC ---
ED HPI GENERAL MEDICAL PROBLEM - General Chief Complaint: General Time Seen by Provider: 01/20/18 09:51 Source of Information: Reports: Patient History Limitations: Reports: No Limitations - History of Present Illness INITIAL COMMENTS - FREE TEXT/NARRATIVE: Pt. presents to ER with compaints of chronic vertigo. She was seen in ER for the same yesterday. She has been experiencing issues with vertigo for several weeks and has had MRI and MRA of the brain and neck, echocardiogram, carotid US , and was admitted to [facility] in [place] for evaluation of this. 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 Pt. MRA shows cerebral circulation that is patent with no large vessel disease. Pt. has not taken her meclizine or dramamine today. She is scheduled to undergo vestibular therapy at [facility] de[facility]. on approx. 01/26. Pt. characterizes the vertigo as worse with movement; a spinning sensation, particularly noticable when she rotates her head. She is not lightheaded, and doesn't feel overly week. She denies any chest pain or palpitations. Duration: Intermittent Location: Reports: Head, Generalized Improves with: Reports: Rest Worsens with: Reports: Movement Context: Reports: Activity. Denies: Sick Contact, Trauma Associated Symptoms: Reports: Loss of Appetite, Malaise, Nausea/Vomiting. Denies: Confusion, Chest Pain, Cough, Diaphoresis, Fever/Chills, Headaches, Rash , Seizure, Shortness of Breath, Syncope, Weakness - Related Data Allergies Allergy/AdvReac Type Severity Reaction Status Date / Time brimonidine [From Combigan] Allergy Itching Verified 01/20/18 10:53 timolol Allergy Itching Verified 01/20/18 10:53 Home Meds: Home Meds Bimatoprost [LUMIGAN 0.01% Ophth Soln] 1 drop EYEBOTH BEDTIME 12/17/17 [History] Calcium Citrate/Vitamin D2 [Calcium with Vit D Tablet] 1 each PO BID 12/17/17 [ History] Hydrochlorothiazide 12.5 mg PO QAM 12/17/17 [History] Lisinopril 20 mg PO DAILY 12/17/17 [History] Multivitamin with Minerals [Multiple Vitamin] 1 each PO BID 12/17/17 [History] Niacin (Inositol Niacinate) [Niacin Flush Free 500 mg Cap] 500 mg PO DAILY 12/17 [History] Hanna-3/DHA/Epa/Fish Oil [Hanna 3 500 Softgel] 1 each PO BID 12/17/17 [History] Vit #49/Iron Fum/FA [Mini Tablet] 1 each PO DAILY 12/17/17 [ History] Thyroid,Pork [Nature-Throid] 65 mg PO DAILY 12/17/17 [History] Vitamin E 100 unit PO DAILY 12/17/17 [History] diphenhydrAMINE [Benadryl] 25 mg PO TID 12/17/17 [History] Meclizine [Antivert] 1 tab PO Q4H PRN 12/29/17 [History] Past Medical History HEENT History: Reports: Glaucoma Cardiovascular History: Reports: High Cholesterol, Hypertension Gastrointestinal History: Reports: PUD Neurological History: Reports: Vertigo Endocrine/Metabolic History: Reports: Hypothyroidism Social & Family History - Tobacco Use Smoking Status *Q: Never Smoker Second Hand Smoke Exposure: No - Caffeine Use Caffeine Use: Reports: Coffee - Alcohol Use Days Per Week of Alcohol Use: 7 Number of Drinks Per Day: 1 Total Drinks Per Week: 7 - Recreational Drug Use Recreational Drug Use: No ED ROS GENERAL - Review of Systems Review Of Systems: See Below Constitutional: Reports: No Symptoms HEENT: Reports: No Symptoms Respiratory: Denies: No Symptoms Cardiovascular: Reports: No Symptoms. Denies: Chest Pain, Blood Pressure Problem, Dyspnea on Exertion, Edema, Lightheadedness, Orthopnea, Palpitations, PND, Syncope Endocrine: Reports: No Symptoms GI/Abdominal: Reports: No Symptoms. Denies: Abdominal Pain, Black Stool, Bloody Stool, Difficulty Swallowing, Distension, Hematemesis, Hematochezia : Reports: No Symptoms. Denies: Flank Pain, Hematuria, Incontinence, Irregular Menses Musculoskeletal: Reports: No Symptoms. Denies: Arm Pain, Back Pain, Muscle Pain , Muscle Stiffness Skin: Reports: No Symptoms. Denies: Jaundice, Bruising, Pruritis, Erythema, Urticaria Neurological: Reports: Dizziness, Pre-Existing Deficit, Gait Disturbance (gait is unsteady when actively experiencing the vertigo). Denies: Headache, Numbness , Paresthesia, Seizure, Tremors, Trouble Speaking Psychiatric: Reports: No Symptoms Hematologic/Lymphatic: Reports: No Symptoms Immunologic: Reports: No Symptoms ED EXAM, GENERAL - Physical Exam Exam: See Below Exam Limited By: No Limitations General Appearance: Alert, WD/WN, No Apparent Distress Eye Exam: Bilateral Eye: EOMI, Normal Fundi, Normal Inspection, PERRL Ears: Normal External Exam, Normal Canal, Hearing Grossly Normal, Normal TMs Ear Exam: Bilateral Ear: Auricle Normal, Canal Normal, TM normal Nose: Normal Inspection, Normal Mucosa, No Blood Throat/Mouth: Normal Inspection, Normal Lips, Normal Teeth, Normal Gums, Normal Oropharynx, Normal Voice, No Airway Compromise Head: Atraumatic, Normocephalic Neck: Normal Inspection, Supple, Non-Tender, Full Range of Motion. No: Carotid Bruit, Lymphadenopathy (L), Lymphadenopathy (R), Thyromegaly Respiratory/Chest: No Respiratory Distress, Lungs Clear, Normal Breath Sounds, No Accessory Muscle Use, Chest Non-Tender Cardiovascular: Normal Peripheral Pulses, Regular Rate, Rhythm, No Edema, No Gallop, No JVD, No Murmur, No Rub Peripheral Pulses: 4+: Radial (L), Radial (R) GI/Abdominal: Normal Bowel Sounds, Soft, Non-Tender, No Organomegaly, No Distention, No Abnormal Bruit, No Mass (Female) Exam: Deferred Rectal (Female) Exam: Deferred Back Exam: Normal Inspection, Full Range of Motion, NT Extremities: Normal Inspection, Normal Range of Motion, Non-Tender, Normal Capillary Refill, No Pedal Edema Neurological: Alert, Oriented, CN II-XII Intact, Normal Cognition, Normal Gait, Normal Reflexes, No Motor/Sensory Deficits Psychiatric: Normal Affect, Normal Mood Skin Exam: Warm, Dry, Intact, Normal Color, No Rash Lymphatic: No Adenopathy Course - Vital Signs Last Recorded V/S: Last Vital Signs Temp 35.6 C 01/20/18 09:55 Pulse 73 01/20/18 09:55 Resp 16 01/20/18 09:55 BP 138/63 01/20/18 09:55 Pulse Ox 97 01/20/18 09:55 - Orders/Labs/Meds Orders: Active Orders 24 hr Category Date Time Status Ang Head [CT] Stat Exams 01/20/18 11:52 Taken Meds: Medications Discontinued Medications Generic Name Dose Route Start Last Admin Trade Name Rcuhi PRN Reason Stop Dose Admin Dimenhydrinate 50 mg 01/20/18 11:17 01/20/18 11:25 Driminate PO 01/20/18 11:18 50 mg ONETIME ONE Administration Iopamidol 100 ml 01/20/18 12:10 01/20/18 12:33 Isovue-300 (61%) IVPUSH 01/20/18 12:11 100 ml ONETIME ONE Administration Meclizine HCl 25 mg 01/20/18 11:17 01/20/18 11:25 Antivert PO 01/20/18 11:18 25 mg ONETIME ONE Administration - Radiology Interpretation Free Text/Narrative:: CTA of brain revealed what appeared most likely tortuosity at the previously noted aneurysm. If it was in fact an aneurysmal lesion, there was no evidence of active bleeding and it was an incidental finding that wasn't causing the vertigo. - Re-Assessments/Exams Free Text/Narrative Re-Assessment/Exam: Physical therapy was able to come down to the ED and performed a Vinny-Hallpike with no nystagmus noted. He did attempt Mana maneuver twice on each side with no resolution of the vertigo. Departure - Departure Time of Disposition: 14:30 Disposition: Home, Self-Care 01 Condition: Fair Clinical Impression: Vertigo, intermittent, Aneurysm of anterior cerebral artery - Discharge Information Instructions: Dizziness, [id number] Referrals: Evangelina Dunaway MD [Primary Care Provider] - Forms: ED Department Discharge Additional Instructions: Continue with meclizine as needed. Keep appointment with physical therapy. - Problem List Review Problem List Initiated/Reviewed/Updated: Yes - My Orders Last 24 Hours: My Active Orders 01/20/18 11:52 Ang Head [CT] Stat - Assessment/Plan Last 24 Hours: My Active Orders 01/20/18 11:52 Ang Head [CT] Stat
== END 2018-01-20 14:30 | disposition home or self-care (01) ==
LOC: VM.ED 09:43
DX: I67.1 Cerebral aneurysm, nonruptured (principal); E78.00 Pure hypercholesterolemia, unspecified; I10 Essential (primary) hypertension; E03.9 Hypothyroidism, unspecified; Z88.8 Allergy status to other drugs, medicaments and biological substances; Z79.899 Other long term (current) drug therapy
CPT/HCPCS: 70496; 99283; 99284; A9270; Q9967

== ENCOUNTER 2018-02-07 22:35 | Emergency (ER) | payer MEDICARE, OTHER ==
[2018-02-07] MEDS ORDERED: hydrOXYzine HCl 25 MG Tab PO ONE (22:49)
--- NOTE | 2018-02-07 22:59 | EDM.PDOC ---
ED HPI GENERAL MEDICAL PROBLEM - General Chief Complaint: General Stated Complaint: DIZZY, shaky Time Seen by Provider: 02/07/18 22:35 Source of Information: Reports: Patient - History of Present Illness INITIAL COMMENTS - FREE TEXT/NARRATIVE: Patient comes to the emergency department with her family for complaints of shaking for 5 minutes. Patient states that she had this episode 2 weeks ago and was seen in the emergency department and had labs and CT completed. Everything came back negative. She was sent back to her primary PCP who is working her up for a middle ear disturbance. Patient had another episode tonight of shaking. She denies losing consciousness, jerking, losing bowel or bladder function, or loss of ambulation function. The shaking is in her hands and mouth. She states that she's never had a panic attack nor knows what they are. She does feel more anxious/nervous than she normally is. Family also states she has been having memory issues over the course of the past few months which is progressively getting worse. She is also working this up in primary care. She's had 2 MRIs done regarding this. Patient denies any chest pain or shortness of breath. Onset: Sudden - Related Data Allergies Allergy/AdvReac Type Severity Reaction Status Date / Time brimonidine [From Combigan] Allergy Itching Verified 01/20/18 10:53 timolol Allergy Itching Verified 01/20/18 10:53 Home Meds: Home Meds Bimatoprost [LUMIGAN 0.01% Ophth Soln] 1 drop EYEBOTH BEDTIME 12/17/17 [History] Calcium Citrate/Vitamin D2 [Calcium with Vit D Tablet] 1 each PO BID 12/17/17 [ History] Hydrochlorothiazide 12.5 mg PO QAM 12/17/17 [History] Lisinopril 20 mg PO DAILY 12/17/17 [History] Multivitamin with Minerals [Multiple Vitamin] 1 each PO BID 12/17/17 [History] Niacin (Inositol Niacinate) [Niacin Flush Free 500 mg Cap] 500 mg PO DAILY 12/17 [History] Graham-3/DHA/Epa/Fish Oil [Graham 3 500 Softgel] 1 each PO BID 12/17/17 [History] Vit #49/Iron Fum/FA [Mini Tablet] 1 each PO DAILY 12/17/17 [ History] Thyroid,Pork [Nature-Throid] 65 mg PO DAILY 12/17/17 [History] Vitamin E 100 unit PO DAILY 12/17/17 [History] diphenhydrAMINE [Benadryl] 25 mg PO TID 12/17/17 [History] Meclizine [Antivert] 1 tab PO Q4H PRN 12/29/17 [History] Ondansetron [Zofran ODT] 4 mg PO Q4H PRN 02/07/18 [History] Past Medical History HEENT History: Reports: Glaucoma Cardiovascular History: Reports: High Cholesterol, Hypertension Gastrointestinal History: Reports: PUD Neurological History: Reports: Vertigo Endocrine/Metabolic History: Reports: Hypothyroidism Social & Family History - Tobacco Use Smoking Status *Q: Never Smoker Second Hand Smoke Exposure: No - Caffeine Use Caffeine Use: Reports: Coffee - Alcohol Use Days Per Week of Alcohol Use: 7 Number of Drinks Per Day: 1 Total Drinks Per Week: 7 - Recreational Drug Use Recreational Drug Use: No ED ROS GENERAL - Review of Systems Review Of Systems: See Below Constitutional: Reports: No Symptoms HEENT: Reports: Vertigo Respiratory: Reports: No Symptoms Cardiovascular: Reports: No Symptoms Endocrine: Reports: No Symptoms GI/Abdominal: Reports: No Symptoms : Reports: No Symptoms Musculoskeletal: Reports: No Symptoms Skin: Reports: No Symptoms Neurological: Reports: Confusion Psychiatric: Reports: Anxiety Hematologic/Lymphatic: Reports: No Symptoms Immunologic: Reports: No Symptoms ED EXAM, GENERAL - Physical Exam Exam: See Below Exam Limited By: No Limitations General Appearance: Alert, WD/WN, No Apparent Distress Neck: Normal Inspection, Supple, Non-Tender, Full Range of Motion Respiratory/Chest: No Respiratory Distress, Lungs Clear, Normal Breath Sounds, No Accessory Muscle Use, Chest Non-Tender Cardiovascular: Normal Peripheral Pulses, Regular Rate, Rhythm, No Edema Extremities: Normal Inspection, Normal Range of Motion Neurological: Alert, Oriented, CN II-XII Intact, Normal Gait Psychiatric: Anxious Skin Exam: Warm, Intact, Normal Color Course - Vital Signs Last Recorded V/S: Last Vital Signs Temp 35.8 C 02/07/18 22:39 Pulse 75 02/07/18 22:39 Resp 20 02/07/18 22:39 BP 162/80 H 02/07/18 22:39 Pulse Ox 100 02/07/18 22:39 - Orders/Labs/Meds Meds: Medications Discontinued Medications Generic Name Dose Route Start Last Admin Trade Name Ruchi PRN Reason Stop Dose Admin Hydroxyzine HCl 25 mg 02/07/18 22:49 02/07/18 22:58 Atarax PO 02/07/18 22:50 25 mg ONETIME ONE Administration Departure - Departure Time of Disposition: 23:30 Disposition: Home, Self-Care 01 Condition: Good Clinical Impression: Anxiety - Discharge Information Instructions: Generalized Anxiety Disorder, Adult, Panic Attacks, [id number] Referrals: Evangelina Dunaway MD [Primary Care Provider] - Forms: ED Department Discharge Additional Instructions: 1. Follow up with PCP early in the week for mcc management of anxiety 2. Diet and exercise as tolerated - Problem List Review Problem List Initiated/Reviewed/Updated: Yes - Assessment/Plan Assessment:: 1. Anxiety
== END 2018-02-07 23:50 | disposition home or self-care (01) ==
LOC: VM.ED 22:35
DX: F41.9 Anxiety disorder, unspecified (principal); E78.00 Pure hypercholesterolemia, unspecified; I10 Essential (primary) hypertension; E03.9 Hypothyroidism, unspecified; Z88.8 Allergy status to other drugs, medicaments and biological substances; Z79.899 Other long term (current) drug therapy
CPT/HCPCS: 99283; A9270

== ENCOUNTER 2021-01-07 13:43 | Emergency (ER) | payer MEDICARE, OTHER ==
[2021-01-07] MEDS ORDERED: Sodium Chloride 0.9% 10 ML Syringe FLUSH PRN (13:57)
--- NOTE | 2021-01-07 14:31 | CR ---
[id number] RAD/RAD Chest PA or AP 1V EXAM: FRONTAL CHEST INDICATION: WEAKNESS, CHILLS COMPARISON: December 19, 2017. DISCUSSION: Hyperinflation consistent with underlying chronic obstructive pulmonary disease. Stable mild linear scarring in the left lung base. No acute infiltrates are identified. Mild cardiomegaly without evidence of edema. No effusions. IMPRESSION: 1. No acute findings. Jayant Lux MD 01/07/21 [id number] Thank you for allowing us to participate in the care of your patient.
[2021-01-07 14:54] LABS: CHLORIDE,CL 98 mmol/L (98-107); SODIUM,NA 133 mmol/L (136-145)
[2021-01-07] MEDS ORDERED: Lactated Ringers 1,000 ML IV SCH (15:00)
[2021-01-07 15:03] LABS: ANION GAP 14.3 mmol/L (5-15)
--- NOTE | 2021-01-07 18:20 | EDM.PDOC ---
ED HPI GENERAL MEDICAL PROBLEM - General Chief Complaint: General Stated Complaint: NOT FEELING GOOD Time Seen by Provider: 01/07/21 13:50 Source of Information: Reports: Patient History Limitations: Reports: No Limitations - History of Present Illness INITIAL COMMENTS - FREE TEXT/NARRATIVE: Patient comes emergency department today from home with her family with concerns of general lysed weakness this patient over the last day or so has not felt very well. Today she just has no energy or stamina. She is feels very generalized weak. No focal weakness by any means. She has had no recent falls head trauma. She has no headache visual acuity changes. No paresthesias of her upper or lower extremities. No change in the functionality of her other extremities other than for generalized weakness. No cough no congestion no shortness of breath or difficulty breathing. No chest pain shortness of breath. No fever no chills. No palpitations syncope vertigo. No abdominal pain nausea or vomiting. No fever no chills. No body aches. No hematuria dysuria or urinary frequency. No black or tarry stools. She has been eating food well but she does not drink much for fluids. She relates that she drinks one 4 ounce glass of water a day and the rest of the day she drinks 1 to 2 cups of coffee and that is all she takes for fluids. She has no Covid symptoms no Covid exposure. She did receive her first Covid vaccine about 2 weeks ago. Generalized Pain Score (Numeric/FACES): 6 - Related Data Allergies Allergy/AdvReac Type Severity Reaction Status Date / Time brimonidine [From Combigan] Allergy Itching Verified 01/20/18 10:53 timolol Allergy Itching Verified 01/20/18 10:53 Home Meds: Home Meds Bimatoprost [LUMIGAN 0.01% Ophth Soln] 1 drop EYEBOTH BEDTIME 12/17/17 [History] Calcium Citrate/Vitamin D2 [Calcium with Vit D Tablet] 1 each PO DAILY 12/17/17 [History] [place]-3/DHA/Epa/Fish Oil [[place] 3 500 Softgel] 1 each PO DAILY 12/17/17 [History] Thyroid,Pork [Nature-Throid] 65 mg PO DAILY 12/17/17 [History] Alendronate Sodium [Fosamax] 70 mg PO Q7D 01/07/21 [History] Ascorbate Calcium [Vitamin C] 500 mg PO DAILY 01/07/21 [History] Clobetasol [Clobetasol Propionate 0.05%] 1 dose TOP BEDTIME 01/07/21 [History] Cyanocobalamin (Vitamin B-12) [B-12] 1,000 mcg PO DAILY 01/07/21 [History] Donepezil HCl 10 mg PO BEDTIME 01/07/21 [History] Dorzolamide [Trusopt 2% Ophth Soln] 1 drop EYELF BID 01/07/21 [History] lisinopriL [Lisinopril] 30 mg PO DAILY 01/07/21 [History] Past Medical History HEENT History: Reports: Glaucoma Cardiovascular History: Reports: High Cholesterol, Hypertension Gastrointestinal History: Reports: PUD Neurological History: Reports: Vertigo Endocrine/Metabolic History: Reports: Hypothyroidism Social & Family History - Tobacco Use Tobacco Use Status *Q: Never Tobacco User - Caffeine Use Caffeine Use: Reports: Coffee ED ROS GENERAL - Review of Systems Review Of Systems: Comprehensive ROS is negative, except as noted in HPI. ED EXAM, GENERAL - Physical Exam Exam: See Below Exam Limited By: No Limitations General Appearance: Alert, WD/WN, No Apparent Distress Eye Exam: Bilateral Eye: EOMI, PERRL Ears: Normal External Exam Nose: Normal Inspection Throat/Mouth: Normal Inspection Head: Atraumatic, Normocephalic Neck: Normal Inspection, Supple, Non-Tender, Full Range of Motion Respiratory/Chest: No Respiratory Distress, Lungs Clear, Normal Breath Sounds, No Accessory Muscle Use, Chest Non-Tender Cardiovascular: Normal Peripheral Pulses, Regular Rate, Rhythm, No Murmur Peripheral Pulses: 2+: Radial (L), Radial (R), Posterior Tibial (L), Posterior Tibial (R), Dorsalis Pedis (L), Dorsalis Pedis (R) GI/Abdominal: Normal Bowel Sounds, Soft, Non-Tender (Female) Exam: Deferred Rectal (Female) Exam: Deferred Back Exam: Normal Inspection, Full Range of Motion Extremities: Normal Inspection, Normal Range of Motion, Normal Capillary Refill Neurological: Alert, Oriented, CN II-XII Intact, Normal Cognition, Normal Gait, No Motor/Sensory Deficits Psychiatric: Normal Affect, Normal Mood Skin Exam: Warm, Dry, Intact, Normal Color, No Rash Course - Vital Signs Last Recorded V/S: Last Vital Signs Temp 97.9 F 01/07/21 14:00 Pulse 62 01/07/21 18:15 Resp 16 01/07/21 18:15 BP 148/78 H 01/07/21 18:15 Pulse Ox 99 01/07/21 18:15 - Orders/Labs/Meds Orders: Active Orders 24 hr Category Date Time Status CULTURE BLOOD [BC] Stat Lab 01/07/21 14:18 Received CULTURE BLOOD [BC] Stat Lab 01/07/21 14:27 Received Blood Culture x2 Reflex Set [OM.PC] Stat Oth 01/07/21 13:57 Ordered Peripheral IV Insertion Adult [OM.PC] Stat Oth 01/07/21 13:57 Ordered Labs: Laboratory Tests 01/07/21 01/07/21 01/07/21 Range/Units 13:50 14:18 14:18 WBC 4.5 (4.0-10.0) x10^3/uL RBC 3.99 L (4.00-5.50) x10^6/uL Hgb 12.4 (12.0-16.0) g/dL Hct 35.5 (33.0-47.0) % MCV 89.0 D (78.0-93.0) fL MCH 31.1 (26.0-32.0) pg MCHC 34.9 (32.0-36.0) g/dL RDW Coeff of Josh 12.8 (10.0-15.0) % Plt Count 225 (130-400) x10^3/uL Neut % (Auto) 88.0 H (50.0-80.0) % Lymph % (Auto) 6.8 L (25.0-50.0) % Baker % (Auto) 4.8 (2.0-11.0) % Eos % (Auto) 0.2 (0.0-4.0) % Baso % (Auto) 0.2 (0.2-1.2) % Sodium 133 L (136-145) mmol/L Potassium 3.3 L (3.5-5.1) mmol/L Chloride 98 (98-107) mmol/L Carbon Dioxide 24 (21-32) mmol/L Anion Gap 14.3 (5-15) mmol/L BUN 10 (7-18) mg/dL Creatinine 0.6 (0.55-1.02) mg/dL Est Cr Clr Drug Dosing TNP Estimated GFR (MDRD) > 60 Glucose 141 H (74-106) mg/dL Lactic Acid (0.4-2.0) mmol/L Calcium 8.7 (8.5-10.1) mg/dL Corrected Calcium 8.54 (8.5-10.1) mg/dL Magnesium 1.8 (1.8-2.4) mg/dL Total Bilirubin 1.3 H (0.2-1.0) mg/dL AST 21 (15-37) U/L ALT 21 (14-59) U/L Alkaline Phosphatase 67 (46-116) U/L Troponin I High Sens 12 (<=51) ng/L C-Reactive Protein 0.3 (<=0.9) mg/dL Total Protein 7.0 (6.4-8.2) g/dL Albumin 4.2 (3.4-5.0) g/dL Globulin 2.8 Albumin/Globulin Ratio 1.50 Urine Color (YELLOW) Urine Appearance (CLEAR) Urine pH (5.0-8.0) Ur Specific [place] Urine Protein (NEGATIVE) mg/dL Urine Glucose (UA) (NEGATIVE) mg/dL Urine Ketones (NEGATIVE) mg/dL Urine Occult Blood (NEGATIVE) Urine Nitrite (NEGATIVE) Urine Bilirubin (NEGATIVE) Urine Urobilinogen (0.2) EU/dL Ur Leukocyte Esterase (NEGATIVE) Urine RBC (NOT SEEN) /HPF Urine WBC (NOT SEEN) /HPF Ur Squamous Epith Cells (NOT SEEN) /HPF Amorphous Sediment Urine Bacteria (NOT SEEN) /HPF Urine Mucus (NOT SEEN) /LPF SARS-CoV-2 RNA (YINA) Negative (NEGATIVE) 01/07/21 01/07/21 Range/Units 14:18 15:01 WBC (4.0-10.0) x10^3/uL RBC (4.00-5.50) x10^6/uL Hgb (12.0-16.0) g/dL Hct (33.0-47.0) % MCV (78.0-93.0) fL MCH (26.0-32.0) pg MCHC (32.0-36.0) g/dL RDW Coeff of Josh (10.0-15.0) % Plt Count (130-400) x10^3/uL Neut % (Auto) (50.0-80.0) % Lymph % (Auto) (25.0-50.0) % Baker % (Auto) (2.0-11.0) % Eos % (Auto) (0.0-4.0) % Baso % (Auto) (0.2-1.2) % Sodium (136-145) mmol/L Potassium (3.5-5.1) mmol/L Chloride (98-107) mmol/L Carbon Dioxide (21-32) mmol/L Anion Gap (5-15) mmol/L BUN (7-18) mg/dL Creatinine (0.55-1.02) mg/dL Est Cr Clr Drug Dosing Estimated GFR (MDRD) Glucose (74-106) mg/dL Lactic Acid 1.3 (0.4-2.0) mmol/L Calcium (8.5-10.1) mg/dL Corrected Calcium (8.5-10.1) mg/dL Magnesium (1.8-2.4) mg/dL Total Bilirubin (0.2-1.0) mg/dL AST (15-37) U/L ALT (14-59) U/L Alkaline Phosphatase (46-116) U/L Troponin I High Sens (<=51) ng/L C-Reactive Protein (<=0.9) mg/dL Total Protein (6.4-8.2) g/dL Albumin (3.4-5.0) g/dL Globulin Albumin/Globulin Ratio Urine Color Yellow (YELLOW) Urine Appearance Clear (CLEAR) Urine pH 7.0 (5.0-8.0) Ur Specific [place] 1.025 Urine Protein 30 H (NEGATIVE) mg/dL Urine Glucose (UA) Negative (NEGATIVE) mg/dL Urine Ketones 40 H (NEGATIVE) mg/dL Urine Occult Blood Trace-lysed H (NEGATIVE) Urine Nitrite Negative (NEGATIVE) Urine Bilirubin Negative (NEGATIVE) Urine Urobilinogen 1.0 (0.2) EU/dL Ur Leukocyte Esterase Negative (NEGATIVE) Urine RBC 5-10 H (NOT SEEN) /HPF Urine WBC 0-5 (NOT SEEN) /HPF Ur Squamous Epith Cells Rare (NOT SEEN) /HPF Amorphous Sediment Few Urine Bacteria Few H (NOT SEEN) /HPF Urine Mucus Moderate H (NOT SEEN) /LPF SARS-CoV-2 RNA (YINA) (NEGATIVE) Meds: Medications Discontinued Medications Generic Name Dose Route Start Last Admin Trade Name Ruchi PRN Reason Stop Dose Admin Lactated Ringer's 1,000 mls @ 150 mls/hr 01/07/21 15:00 01/07/21 15:15 Ringers, Lactated IV 150 mls/hr ASDIRECTED CECIL Administration Sodium Chloride 10 ml 01/07/21 13:57 Sodium Chloride 0.9% 10 Ml Syringe FLUSH ASDIRECTED PRN Keep Vein Open - Radiology Interpretation Free Text/Narrative:: CXR per radiology no acute findings. - Re-Assessments/Exams Free Text/Narrative Re-Assessment/Exam: 01/07/21 IV established labs drawn. CXR neg EKG neg IV LR 250ml bolus and then 150mls/hr. Meal tray. Findings. Laboratory evaluation with a CBC, WBC 4.5 hemoglobin 12.4 platelet 225. CMP with a sodium 133, potassium 3.3, normal BUN and creatinine, glucose 141 mild elevation of the T bili at 1.3 rest of liver enzymes are normal. Lactic acid normal at 1.3. Magnesium 1.8. Troponin sensitivity is 12. CRP 0.3. Urinalysis small amount of RBCs no nitrites leukocytes. Covid screening negative. Care the patient was here for multiple hours and received adequate IV hydration she did feel quite a bit better. She actually ate some food and she was able to ambulate and did not feel as weak as she did before. Her work-up was rather unremarkable and negative. She could have some dehydration causing her weakness or she could have some sequelae of her Covid vaccine which is not an uncommon finding even this far out from her recent Covid vaccination. She does feel quite better after the above therapy. We will discharge her home with symptomatic management. I discussed with her at length the importance of drinking more than 4 ounces of water in a day. Especially with her coffee/caffeine intake she r anicetolly is quite low on her fluids. Is important for her to increase her fluids over the next couple of days and chronically. Anything new or worse she is to recheck in the emergency department. She is comfortable with this plan and her questions were answered. Departure - Departure Time of Disposition: 18:15 Disposition: Home, Self-Care 01 Clinical Impression: Weakness, Dehydration - Discharge Information Instructions: Dehydration, Elderly, [id number] Referrals: Evangelina Dunaway MD [Primary Care Provider] - Forms: ED Department Discharge Additional Instructions: Home rest. Plenty of fluids. really should be about 8 glasses of 8 ounces of water minimum a day. Coffee ZAPIEN NOT count. Continue previous medications. Return to the ED if new or worsening symptoms. Follow up with PCP in the next 4-6 days if not improving or continued concerns. Sepsis Event Note (ED) - Evaluation Sepsis Screening Result: No Definite Risk - Focused Exam Vital Signs: Vital Signs Temp Pulse Resp BP Pulse Ox 01/07/21 18:15 62 16 148/78 H 99 01/07/21 16:37 62 16 143/62 H 98 01/07/21 14:00 97.9 F 69 16 166/65 H 98 - My Orders Last 24 Hours: My Active Orders 01/07/21 13:57 Blood Culture x2 Reflex Set [OM.PC] Stat Peripheral IV Insertion Adult [OM.PC] Stat 01/07/21 14:18 CULTURE BLOOD [BC] Stat 01/07/21 14:27 CULTURE BLOOD [BC] Stat - Assessment/Plan Last 24 Hours: My Active Orders 01/07/21 13:57 Blood Culture x2 Reflex Set [OM.PC] Stat Peripheral IV Insertion Adult [OM.PC] Stat 01/07/21 14:18 CULTURE BLOOD [BC] Stat 01/07/21 14:27 CULTURE BLOOD [BC] Stat
--- NOTE | 2021-01-07 21:06 | PCM.EKG ---
#1 Interpretation EKG Date: 01/07/21 Time: 14:10 Rhythm: NSR Rate (Beats/Min): 53 [place]: Normal P-Wave: Present QRS: Normal ST-T: Normal QT: Normal Comparison: No Change
== END 2021-01-07 18:30 | disposition home or self-care (01) ==
LOC: VM.ED 13:43
DX: E86.0 Dehydration (principal); R53.1 Weakness; I10 Essential (primary) hypertension; E03.9 Hypothyroidism, unspecified; Z88.8 Allergy status to other drugs, medicaments and biological substances; Z79.899 Other long term (current) drug therapy; Z20.822 Contact with and (suspected) exposure to COVID-19
CPT/HCPCS: 36415; 71045; 80053; 81001; 83605; 83735; 84484; 85025; 86140; 87040; 93005; 93010; 99284; 99285-25; J7120; U0002

== ENCOUNTER 2021-05-14 15:01 | Emergency (ER) | payer MEDICARE, OTHER ==
[2021-05-14] MEDS ORDERED: Sodium Chloride 0.9% 10 ML Syringe FLUSH PRN (15:10)
[2021-05-14] MEDS ORDERED: Ondansetron 4 MG/2 ML SDV IVPUSH ONE (15:12)
[2021-05-14] MEDS ORDERED: Morphine 4 MG/ML Syringe IVPUSH ONE ×2 (15:12→17:01)
--- NOTE | 2021-05-14 15:26 | EDM.PDOC ---
ED HPI GENERAL MEDICAL PROBLEM - General Stated Complaint: RLQ PAIN Time Seen by Provider: 05/14/21 15:01 Source of Information: Reports: Patient History Limitations: Reports: No Limitations - History of Present Illness INITIAL COMMENTS - FREE TEXT/NARRATIVE: Pt. presents to ER with complaints of abdominal pain. It was initially evaluated in the clinic. Some cursory labs were ordered and she was sent to ER for further evaluation and treatment. Initially pt. reported the discomfort was located in the RLQ, but later indicated it was more R upper abdominal pain. Pt. states that the discomfort started in the night last night. She states that she feels chilled at times, but denies any fever. No sweats. Denies any nausea or vomiting. Pt. states that the discomfort is worse with movement and palpation. She states that she has not been constipated, and states that she always has at least one, sometimes 2 bowel movements a day. Denies any dysuria. No frequency, or urgency. No back or flank pain. Denies any hematuria, pyuria, or discoloration. She states that she has not been experiencing any chest pain or shortness of breath. No denies any bloody stools. She states that her appendix was removed as a child. Pt. lives by herself. Her daughter lives close to her, and looks in on her often. Onset: Today Onset Date: 05/14/21 Associated Symptoms: Denies: Chest Pain, Cough, Diaphoresis, Fever/Chills, Malaise, Nausea/Vomiting, Rash, Seizure, Shortness of Breath, Syncope, Weakness Right Abdominal Pain Score (Numeric/FACES): 8 - Related Data Allergies Allergy/AdvReac Type Severity Reaction Status Date / Time brimonidine [From Combigan] Allergy Itching Verified 05/14/21 15:45 timolol Allergy Itching Verified 05/14/21 15:45 Home Meds: Home Meds Bimatoprost [LUMIGAN 0.01% Ophth Soln] 1 drop EYEBOTH BEDTIME 12/17/17 [History] Calcium Citrate/Vitamin D2 [Calcium with Vit D Tablet] 1 each PO DAILY 12/17/17 [History] [place]-3/DHA/Epa/Fish Oil [[place] 3 500 Softgel] 1 each PO DAILY 12/17/17 [History] Thyroid,Pork [Nature-Throid] 65 mg PO DAILY 12/17/17 [History] Alendronate Sodium [Fosamax] 70 mg PO Q7D 01/07/21 [History] Ascorbate Calcium [Vitamin C] 500 mg PO DAILY 01/07/21 [History] Clobetasol [Clobetasol Propionate 0.05%] 1 dose TOP BEDTIME 01/07/21 [History] Cyanocobalamin (Vitamin B-12) [B-12] 1,000 mcg PO DAILY 01/07/21 [History] Donepezil HCl 10 mg PO BEDTIME 01/07/21 [History] Dorzolamide [Trusopt 2% Ophth Soln] 1 drop EYELF BID 01/07/21 [History] lisinopriL [Lisinopril] 30 mg PO DAILY 01/07/21 [History] Past Medical History HEENT History: Reports: Glaucoma Cardiovascular History: Reports: High Cholesterol, Hypertension Gastrointestinal History: Reports: PUD Neurological History: Reports: Vertigo Endocrine/Metabolic History: Reports: Hypothyroidism Social & Family History - Caffeine Use Caffeine Use: Reports: Coffee ED ROS GENERAL - Review of Systems Review Of Systems: See Below Constitutional: Reports: No Symptoms HEENT: Reports: No Symptoms Respiratory: Reports: No Symptoms Cardiovascular: Reports: No Symptoms Endocrine: Reports: No Symptoms GI/Abdominal: Reports: Abdominal Pain. Denies: Black Stool, Bloody Stool, Constipation, Hematemesis, Hematochezia, Melena : Reports: No Symptoms Musculoskeletal: Reports: No Symptoms Skin: Reports: No Symptoms Neurological: Reports: No Symptoms Psychiatric: Reports: No Symptoms Hematologic/Lymphatic: Reports: No Symptoms Immunologic: Reports: No Symptoms ED EXAM, GENERAL - Physical Exam Exam: See Below Exam Limited By: No Limitations General Appearance: Alert, WD/WN, No Apparent Distress Head: Atraumatic, Normocephalic Respiratory/Chest: No Respiratory Distress, Lungs Clear, Normal Breath Sounds, No Accessory Muscle Use, Chest Non-Tender Cardiovascular: Normal Peripheral Pulses, Regular Rate, Rhythm, No Edema, No JVD, No Murmur Peripheral Pulses: 3+: Radial (R) GI/Abdominal: Soft, Guarding, Tender (RLQ) (Female) Exam: Deferred Rectal (Female) Exam: Deferred Back Exam: Normal Inspection, Full Range of Motion Extremities: Normal Inspection, Normal Range of Motion, Non-Tender, No Pedal Edema, Normal Capillary Refill Neurological: Alert, Oriented, CN II-XII Intact, Normal Cognition, Normal Gait Psychiatric: Normal Affect, Normal Mood Skin Exam: Warm, Dry, Intact, Normal Color. No: Jaundice Course - Vital Signs Last Recorded V/S: Last Vital Signs Temp 36.4 C 05/14/21 15:46 Pulse 66 05/14/21 15:46 Resp 14 05/14/21 15:46 BP 128/53 L 05/14/21 15:46 Pulse Ox 98 05/14/21 15:46 - Orders/Labs/Meds Orders: Active Orders 24 hr Category Date Time Status PROCALCITONIN [CHEM] Stat Lab 05/14/21 17:15 Received Sodium Chloride 0.9% [Normal Saline] 1,000 ml Med 05/14/21 15:45 Active IV ASDIRECTED Sodium Chloride 0.9% [Saline Flush] Med 05/14/21 15:10 Active 10 ml FLUSH ASDIRECTED PRN Peripheral IV Insertion Adult [OM.PC] Routine Oth 05/14/21 15:11 Ordered Medication Orders Sodium Chloride (Normal Saline) 1,000 mls @ 1,000 mls/hr IV ASDIRECTED CECIL Last Admin: 05/14/21 15:55 Dose: 1,000 mls/hr Documented by: RIYA Sodium Chloride (Sodium Chloride 0.9% 10 Ml Syringe) 10 ml FLUSH ASDIRECTED PRN PRN Reason: Keep Vein Open Labs: Laboratory Tests 05/14/21 05/14/21 05/14/21 Range/Units 15:17 17:15 17:15 PT 10.5 (9.9-12.5) SEC INR 0.9 L (2.0-3.5) APTT 25.0 L (25.6-32.8) SEC Lactic Acid (0.4-2.0) mmol/L Magnesium 1.7 L (1.8-2.4) mg/dL Total Bilirubin (0.2-1.0) mg/dL Direct Bilirubin (0.00-0.20) mg/dL Indirect Bilirubin AST (15-37) U/L ALT (14-59) U/L Alkaline Phosphatase (46-116) U/L C-Reactive Protein 3.1 H (<=0.9) mg/dL Total Protein (6.4-8.2) g/dL Albumin (3.4-5.0) g/dL Globulin Albumin/Globulin Ratio Urine Color Yellow (YELLOW) Urine Appearance Clear (CLEAR) Urine pH 6.0 (5.0-8.0) Ur Specific [place] >=1.030 Urine Protein 30 H (NEGATIVE) mg/dL Urine Glucose (UA) Negative (NEGATIVE) mg/dL Urine Ketones Negative (NEGATIVE) mg/dL Urine Occult Blood Trace-intact H (NEGATIVE) Urine Nitrite Negative (NEGATIVE) Urine Bilirubin Negative (NEGATIVE) Urine Urobilinogen 2.0 H (0.2) EU/dL Ur Leukocyte Esterase Negative (NEGATIVE) Urine RBC 0-5 (NOT SEEN) /HPF Urine WBC 0-5 (NOT SEEN) /HPF Ur Squamous Epith Cells Occasional H (NOT SEEN) /HPF Urine Bacteria Rare (NOT SEEN) /HPF Urine Mucus Moderate H (NOT SEEN) /LPF 05/14/21 05/14/21 Range/Units 17:15 17:15 PT (9.9-12.5) SEC INR (2.0-3.5) APTT (25.6-32.8) SEC Lactic Acid 1.2 (0.4-2.0) mmol/L Magnesium (1.8-2.4) mg/dL Total Bilirubin 2.0 H (0.2-1.0) mg/dL Direct Bilirubin 0.36 H (0.00-0.20) mg/dL Indirect Bilirubin 1.64 AST 23 (15-37) U/L ALT 16 (14-59) U/L Alkaline Phosphatase 53 (46-116) U/L C-Reactive Protein (<=0.9) mg/dL Total Protein 6.2 L (6.4-8.2) g/dL Albumin 3.4 (3.4-5.0) g/dL Globulin 2.8 Albumin/Globulin Ratio 1.21 Urine Color (YELLOW) Urine Appearance (CLEAR) Urine pH (5.0-8.0) Ur Specific [place] Urine Protein (NEGATIVE) mg/dL Urine Glucose (UA) (NEGATIVE) mg/dL Urine Ketones (NEGATIVE) mg/dL Urine Occult Blood (NEGATIVE) Urine Nitrite (NEGATIVE) Urine Bilirubin (NEGATIVE) Urine Urobilinogen (0.2) EU/dL Ur Leukocyte Esterase (NEGATIVE) Urine RBC (NOT SEEN) /HPF Urine WBC (NOT SEEN) /HPF Ur Squamous Epith Cells (NOT SEEN) /HPF Urine Bacteria (NOT SEEN) /HPF Urine Mucus (NOT SEEN) /LPF Meds: Medications Generic Name Dose Route Start Last Admin Trade Name Freq PRN Reason Stop Dose Admin Sodium Chloride 1,000 mls @ 1,000 mls/hr 05/14/21 15:45 05/14/21 15:55 Normal Saline IV 1,000 mls/hr ASDIRECTED CECIL Administration Sodium Chloride 10 ml 05/14/21 15:10 Sodium Chloride 0.9% 10 Ml Syringe FLUSH ASDIRECTED PRN Keep Vein Open Discontinued Medications Generic Name Dose Route Start Last Admin Trade Name Freq PRN Reason Stop Dose Admin Ketorolac Tromethamine 15 mg 05/14/21 17:15 05/14/21 17:25 Ketorolac 15 Mg/Ml Sdv IVPUSH 05/14/21 17:16 15 mg ONETIME ONE Administration Morphine Sulfate 4 mg 05/14/21 15:12 05/14/21 15:25 Morphine 4 Mg/Ml Syringe IVPUSH 05/14/21 15:13 4 mg ONETIME ONE Administration Morphine Sulfate 4 mg 05/14/21 17:01 05/14/21 17:12 Morphine 4 Mg/Ml Syringe IVPUSH 05/14/21 17:02 4 mg ONETIME ONE Administration Ondansetron HCl 4 mg 05/14/21 15:12 05/14/21 15:25 Ondansetron 4 Mg/2 Ml Sdv IVPUSH 05/14/21 15:13 4 mg ONETIME ONE Administration Departure - Departure Time of Disposition: 18:11 Disposition: DC/Tfer to Acute Hospital 02 Clinical Impression: Cholecystitis - Discharge Information Instructions: Diverticulitis, [id number] Referrals: Evangelina Dunaway MD [Primary Care Provider] - Forms: ED Department Discharge Sepsis Event Note (ED) - Focused Exam Vital Signs: Vital Signs Temp Pulse Resp BP Pulse Ox 05/14/21 15:46 36.4 C 66 14 128/53 L 98 - Problem List Review Problem List Initiated/Reviewed/Updated: Yes - My Orders Last 24 Hours: My Active Orders 05/14/21 15:10 Sodium Chloride 0.9% [Saline Flush] 10 ml FLUSH ASDIRECTED PRN 05/14/21 15:11 Peripheral IV Insertion Adult [OM.PC] Routine 05/14/21 15:45 Sodium Chloride 0.9% [Normal Saline] 1,000 ml IV ASDIRECTED 05/14/21 17:15 PROCALCITONIN [CHEM] Stat - Assessment/Plan Last 24 Hours: My Active Orders 05/14/21 15:10 Sodium Chloride 0.9% [Saline Flush] 10 ml FLUSH ASDIRECTED PRN 05/14/21 15:11 Peripheral IV Insertion Adult [OM.PC] Routine 05/14/21 15:45 Sodium Chloride 0.9% [Normal Saline] 1,000 ml IV ASDIRECTED 05/14/21 17:15 PROCALCITONIN [CHEM] Stat Plan: Pt. will be transferred to [facility]. She will be transported via [facility] ground ambulance. Discussed code status with patient and daughter. She does not want CPR in the event she has a cardiac arrest. Dr. Drake is accepting.
[2021-05-14] MEDS ORDERED: Iopamidol 612 MG/ML 100 ML Bottle IVPUSH ONE (15:35)
[2021-05-14] MEDS ORDERED: Sodium Chloride 0.9% 1,000 ML IV SCH (15:45)
--- NOTE | 2021-05-14 16:31 | CT ---
[id number] CT/CT Abdomen Pelvis W IV EXAM: CT Abdomen Pelvis W IV CLINICAL DATA: RIGHT LOWER QUADRANT ABDOMINAL PAIN. COMPARISON STUDY: None. FINDINGS: Gallbladder is massively distended with cholelithiasis. There is gallbladder wall thickening. Borderline dilation of the common bile duct measuring up to 9 mm. Dilation of the intrahepatic bile ducts. There is luminal irregularity of the distal common bile duct (series 2 image 56). Finding is nonspecific and could represent choledocholithiasis or luminal mass Appendectomy. Colonic diverticulosis. Numerous fluid-filled loops of distal small bowel. No evidence of small bowel dilation to suggest enteritis. No evidence of obstruction. No colitis or diverticulitis. No free fluid or fluid collections in the abdomen/pelvis. No pneumoperitoneum or pneumatosis. Spondylosis. No acute fracture or compression deformity. IMPRESSION: Cholelithiasis with massive gallbladder distention. Additionally there is gallbladder wall thickening with intra-axial hepatic bile duct dilation and luminal irregularity in the distal common duct near the ampulla. Findings could represent biliary obstruction and cholecystitis secondary to choledocholithiasis or obstructing mass in the distal common bile duct. Correlation with LFTs and surgical consultation is recommended. Mat Jones MD 05/14/21 [id number] Thank you for allowing us to participate in the care of your patient.
[2021-05-14] MEDS ORDERED: Ketorolac 15 MG/ML SDV IVPUSH ONE (17:15)
== END 2021-05-14 18:48 | disposition short-term general hospital (02) ==
LOC: VM.ED 15:01
DX: K81.9 Cholecystitis, unspecified (principal); I10 Essential (primary) hypertension; Z79.899 Other long term (current) drug therapy; Z88.8 Allergy status to other drugs, medicaments and biological substances
CPT/HCPCS: 36415; 74177; 80076; 81001; 83605; 83735; 84145; 85610; 85730; 86140; 96374; 96375; 96376; 99284; 99285-25; J1885; J2270; J2405; J7030; Q9967

== ENCOUNTER 2022-01-07 20:00 | Emergency (ER) | payer MEDICARE, OTHER ==
[2022-01-07] MEDS ORDERED: Ondansetron 4 MG Tab.DIS PO ONE (20:16)
[2022-01-07 20:55] LABS: ANION GAP 12.6 mmol/L (5-15); CHLORIDE,CL 101 mmol/L (98-107); SODIUM,NA 137 mmol/L (136-145)
[2022-01-07] MEDS ORDERED: Take Home: Ondansetron 4 MG Tab.DIS, 5 Tab Pack PO ONE (21:19)
== END 2022-01-07 21:29 | disposition home or self-care (01) ==
LOC: VM.ED 20:00
DX: R11.2 Nausea with vomiting, unspecified (principal); E78.00 Pure hypercholesterolemia, unspecified; I10 Essential (primary) hypertension; E03.9 Hypothyroidism, unspecified; Z88.5 Allergy status to narcotic agent; Z88.8 Allergy status to other drugs, medicaments and biological substances
CPT/HCPCS: 36415; 80053; 81001; 82150; 83690; 85025; 86140; 99283; 99284; A9270-GY; Q0162

== ENCOUNTER 2022-05-17 19:12 | Emergency (ER) | payer MEDICARE, OTHER | END 2022-05-17 19:40 | disposition home or self-care (01) | LOC: VM.ED 19:12 | DX: S61.412A Laceration without foreign body of left hand, initial encounter (principal); E78.00 Pure hypercholesterolemia, unspecified; I10 Essential (primary) hypertension; E03.9 Hypothyroidism, unspecified; Z88.8 Allergy status to other drugs, medicaments and biological substances; Z79.899 Other long term (current) drug therapy; W26.8XXA Contact with other sharp object(s), not elsewhere classified, initial encounter | CPT/HCPCS: 99282; 99283 ==

== ENCOUNTER 2022-08-29 13:39 | Emergency (ER) | payer MEDICARE, OTHER | END 2022-08-29 14:52 | disposition home or self-care (01) | LOC: VM.ED 13:39 | DX: S00.03XA Contusion of scalp, initial encounter (principal); E78.00 Pure hypercholesterolemia, unspecified; I10 Essential (primary) hypertension; E03.9 Hypothyroidism, unspecified; Z88.8 Allergy status to other drugs, medicaments and biological substances; Z79.899 Other long term (current) drug therapy; W10.8XXA Fall (on) (from) other stairs and steps, initial encounter | CPT/HCPCS: 70450; 99283 ==

== ENCOUNTER 2024-04-15 09:55 | Emergency (ER) | payer MEDICARE, OTHER ==
[2024-04-15 10:26] LABS: EOSINOPHILS ABSOLUTE AUTO 0.1 x10^3/uL (0.0-0.5); EOSINOPHILS PERCENT AUTO 3.9 % (0.0-4.0); HEMATOCRIT 35.3 % (33.0-47.0); HEMOGLOBIN 11.9 g/dL (12.0-16.0); IMMATURE GRAN ABSOLUTE AUTO 0.01 x10^3/uL (0.00-0.07); LYMPHOCYTES ABSOLUTE AUTO 0.6 x10^3/uL (1.0-4.8); LYMPHOCYTES PERCENT AUTO 20.8 % (25.0-50.0); MEAN CORPUSCULAR HEMOGLOBIN 30.8 pg (26.0-32.0); MEAN CORPUSCULAR HGB CONC 33.7 g/dL (32.0-36.0); MEAN CORPUSCULAR VOLUME 91.5 fL (78.0-93.0); MONOCYTES ABSOLUTE AUTO 0.2 x10^3/uL (0.0-0.8); MONOCYTES PERCENT AUTO 6.8 % (2.0-11.0); NEUTROPHILS ABSOLUTE AUTO 2.1 x10^3/uL (1.8-7.7); NEUTROPHILS PERCENT AUTO 67.2 % (50.0-80.0); PLATELET COUNT,PLT 189 x10^3/uL (130-400); RED BLOOD CELL COUNT 3.86 x10^6/uL (4.00-5.50); WHITE BLOOD CELL COUNT,WBC 3.1 x10^3/uL (4.0-10.0)
[2024-04-15 10:46] LABS: A/G RATIO 1.17; ALBUMIN 3.5 g/dL (3.4-5.0); ANION GAP 11.6 mmol/L (5-15); BILIRUBIN TOTAL 1.2 mg/dL (0.2-1.0); CALCIUM 9.3 mg/dL (8.5-10.1); CREATININE 0.8 mg/dL (0.55-1.02); EST CRCL DRUG DOSING (CG) 37.77 mL/min; MAGNESIUM 1.8 mg/dL (1.8-2.4); POTASSIUM,K 3.6 mmol/L (3.5-5.1); PROTEIN TOTAL,TP 6.5 g/dL (6.4-8.2)
== END 2024-04-15 11:13 | disposition home or self-care (01) ==
LOC: VM.ED 09:55 → SUPCPDRO 09:55 → VM.ED 11:13
DX: R55 Syncope and collapse (principal); I10 Essential (primary) hypertension; E03.9 Hypothyroidism, unspecified; Z90.49 Acquired absence of other specified parts of digestive tract; Z79.899 Other long term (current) drug therapy; Z88.8 Allergy status to other drugs, medicaments and biological substances
CPT/HCPCS: 36415; 70450; 80053; 83735; 84484; 85025; 93005; 99285